=== PATIENT | female | born 1940 | race Caucasian/White ===

== ENCOUNTER 2021-12-26 10:28 | Emergency (ER) | payer MEDICARE, OTHER, SELFPAY ==
[2021-12-26 10:43] VITALS: BP 145/109; PULSE 97; RESP 22; TEMP 37.9; O2SAT 97; BMI 21.5
[2021-12-26 11:00] VITALS: BP 145/64; PULSE 80; O2SAT 97
[2021-12-26 11:30] VITALS: BP 128/60; PULSE 82; O2SAT 95
[2021-12-26 11:43] LABS: Basophils Absolute Auto 0.02 K/uL (0.00-0.30); Basophils Percent Auto 0.3 % (0.0-3.0); Hematocrit 37.6 % (33.0-51.0); Hemoglobin* 12.3 gm/dL (12.0-16.0); Lymphocytes Percent Auto 10.1 % (20-44); Mean Corpuscular HGB Conc 33 gm/dL (32-36); Mean Corpuscular Hemoglobin 29 pg (26-34); Mean Corpuscular Volume 87 fL (80-100); Monocytes Percent Auto 16.5 % (0.0-11.0); Neutrophils Percent Auto 73.1 % (42.0-72.0); Platelet Count* 185 K/uL (140-440); RDW Coefficient of Variation % 12.6 % (11.5-15.5); Red Blood Count 4.31 m/uL (4.00-5.20); White Blood Count* 6.62 K/uL (4.50-11.00)
[2021-12-26 11:45] LABS: Slide Review Reflex No
--- NOTE | 2021-12-26 11:53 | ED_ITS ---
HPI - General Adult General Chief complaint: Cough Stated complaint: Headache,cough, Time Seen by Provider: 12/26/21 11:13 Source: patient Mode of arrival: ambulatory Limitations: no limitations History of Present Illness HPI narrative: Patient is a carly 81-year-old female coming in today concerned about COVID-19. Her was diagnosed with COVID yesterday. She states that last night she developed chills, achiness and a mild cough. She does not feel short of breath. Her appetite isn't as great as it normally is but she has been eating and drinking. She denies any diarrhea, chest pain or abdominal discomfort. She is here to get tested and would like treatment like her had if possible. Patient is vaccinated and boosted. She has a history of hypothyroidism and mildly elevated blood pressure-she is on levothyroxine and lisinopril. Related Data Previous Rx's Medication Instructions Recorded levothyroxine 50 mcg tablet 50 mcg PO QDAY #90 tabs 11/05/21 nirmatrelvir 300 mg (150 mg See Rx Instructions PO .COMPLEX 12/26/21 x2)-ritonavir 100 mg tablet,dose #30 ea pack(EUA) (Paxlovid) Allergies Allergy/AdvReac Type Severity Reaction Status Date / Time codeine Allergy Verified 12/26/21 11:01 Sulfa (Sulfonamide Allergy Verified 12/26/21 11:01 Antibiotics) Review of Systems Status of ROS: Reports: 10 or more systems reviewed and unremarkable except as noted in History and below PFSH PFSH Social History Smoking Status: Never smoker Do you use any of these nicotine containing products: None Second hand tobacco smoke exposure: No How often do you have a drink containing alcohol: never How often do you have six or more drinks on one occasion: Never AUDIT-C Alcohol total score: 0 Non-prescribed substance use: denies use service: No Exam Narrative: Exam Narrative: Well-nourished elderly patient in no acute distress. Alert and oriented. Answers questions appropriately. Mood and affect are appropriate. Thoughts are goal oriented and rational. No tangential or magical thinking noted. Patient speaks in full sentences without needing to catch her breath. She is not hypoxic or tachypneic. HEENT: Normocephalic atraumatic. Pupils are equally round reactive to light. Extraocular muscles are intact. Conjunctivae are moist without any icterus noted. Moist mucous membranes. Posterior pharynx is normal. Neck is soft without any lymphadenopathy or thyromegaly. No masses are appreciated. Cardiovascular: Heart is regular rate and rhythm S1 and S2 are present without any murmurs. Lungs: Clear to auscultation bilaterally no wheezes rhonchi or rales are appreciated. Patient takes deep breaths without any discomfort. Skin: Well perfused without any obvious rashes. Const: Vital Signs, click to edit/add: Vital Signs - 24 hr 12/26/21 10:43 Temperature 100.2 F H Pulse Rate [Pulse Oximeter] 97 Respiratory Rate 22 Blood Pressure [Ri ght Upper Arm] 145/109 H Pulse Oximetry 97 Oxygen Delivery Me thod Room Air Course Course Hospital Course: CBC and chemistries were normal, COVID-19 was positive as expected. Vital Signs Vital signs: Initial Vital Signs Temperature 100.2 F H 12/26/21 10:43 Temperature Source Temporal Artery Scan 12/26/21 10:43 Pulse Rate 97 12/26/21 10:43 Pulse Rhythm 12/26/21 10:43 Respiratory Rate 22 12/26/21 10:43 Blood Pressure 145/109 H 12/26/21 10:43 Blood Pressure Mean 121 12/26/21 10:43 Pulse Oximetry 97 12/26/21 10:43 Oxygen Delivery Method 12/26/21 10:43 Vital Signs Temperature 100.2 F H 12/26/21 10:43 Pulse Rate 97 12/26/21 10:43 Respiratory Rate 22 12/26/21 10:43 Blood Pressure 145/109 H 12/26/21 10:43 Pulse Oximetry 97 12/26/21 10:43 Oxygen Delivery Method 12/26/21 10:43 Temperature 100.2 F H 12/26/21 10:43 Pulse Rate 97 12/26/21 10:43 Respiratory Rate 22 12/26/21 10:43 Blood Pressure 145/109 H 12/26/21 10:43 Pulse Oximetry 97 12/26/21 10:43 Oxygen Delivery Method 12/26/21 10:43 Medical Decision Making MDM Narrative Medical decision making narrative: 81-year-old female with COVID-19, hemodynamically stable. Did check her interactions between Paxlovid and lisinopril/levothyroxine - none were found. Lab Data Lab results reviewed: Yes I reviewed the patient's lab results Labs: Lab Results 12/26/21 12/26/21 12/26/21 Range/Units 11:14 11:35 11:35 WBC 6.62 (4.50-11.00) K/uL RBC 4.31 (4.00-5.20) m/uL Hgb 12.3 (12.0-16.0) gm/dL Hct 37.6 (33.0-51.0) % MCV 87 (80-100) fL MCH 29 (26-34) pg MCHC 33 (32-36) gm/dL RDW Coeff of Tanya 12.6 (11.5-15.5) % Plt Count 185 (140-440) K/uL Neut % (Auto) 73.1 H (42.0-72.0) % Lymph % (Auto) 10.1 L (20-44) % Starke % (Auto) 16.5 H (0.0-11.0) % Eos % (Auto) 0.0 (0.0-7.0) % Baso % (Auto) 0.3 (0.0-3.0) % Neut # (Auto) 4.80 (1.7-7.0) K/uL Lymph # (Auto) 0.70 L (0.90-2.90) K/uL Starke # (Auto) 1.10 H (0.00-0.90) K/UL Eos # (Auto) 0.00 (0.00-0.50) K/uL Baso # (Auto) 0.02 (0.00-0.30) K/uL Abs Immat Gran (auto) 0.00 (0.00-0.30) K/uL Sodium 136 (135-149) mmol/L Potassium 3.7 (3.6-5.1) mmol/L Chloride 101 (96-114) mmol/L Carbon Dioxide 27 (20-32) mmol/L BUN 20 (7-30) mg/dL Creatinine 0.5 (0.5-1.5) mg/dL Estimated Creat Clear 31.15 Estimated GFR 94 ml/min Glucose 105 (60-115) mg/dL Calcium 9.1 (8.4-10.6) mg/dL SARS-CoV-2 (PCR) POSITIVE SARS-CoV-2 A (Negative) Influenza Type A (PCR) Negative PCR FLU A (Negative) Influenza Type B (PCR) Negative PCR FLU B (Negative) Discharge Plan Discharge Clinical Impression: COVID-19 Patient Disposition: Home, Self-Care Condition: Stable Additional Instructions: Take all medications as prescribed. If you feel like you are getting worse, return to the ER. Okay to take Tylenol as needed for fever reduction. Make sure to stay well-hydrated, eat nutritious meals and rest. You should quarantine yourself for 10 days starting on the 1st day that your symptoms started, or for 5 days if you are completely asymptomatic. Prescriptions: New Paxlovid (EUA) 300 mg (150 mg x 2)-100 mg tablets,dose pack See Rx Instructions .ROUTE .COMPLEX Qty: 30 0RF Rx Instructions: take TWO 150 mg tablets of nirmatrelvir with ONE 100 mg tablet of ritonavir twice daily for 5 days No Action levothyroxine 50 mcg tablet 50 mcg PO QDAY Qty: 90 2RF Follow Up/Referrals: Mickie Walters MD [Primary Care Provider] - Stand Alone Forms: [facility] Info Instructions
[2021-12-26 11:57] LABS: Chloride* 101 mmol/L (96-114)
[2021-12-26 11:58] LABS: Potassium* 3.7 mmol/L (3.6-5.1); Sodium* 136 mmol/L (135-149)
[2021-12-26 12:00] VITALS: BP 151/65; PULSE 79; O2SAT 97
[2021-12-26 12:00] LABS: Creatinine* 0.5 mg/dL (0.5-1.5); Est. Creatinine Clearance* 31.15; Estimated Glomerular Filt Rate 94 ml/min
[2021-12-26 12:01] LABS: Blood Urea Nitrogen* 20 mg/dL (7-30); Calcium* 9.1 mg/dL (8.4-10.6); Carbon Dioxide* 27 mmol/L (20-32); Glucose* 105 mg/dL (60-115)
[2021-12-26 12:04] LABS: PCR FLU A Negative PCR FLU A (Negative); PCR FLU B Negative PCR FLU B (Negative); SARS PCR* POSITIVE SARS-CoV-2 (Negative)
[2021-12-26 12:30] VITALS: BP 140/64; PULSE 83; RESP 22; O2SAT 97
== END 2021-12-26 12:45 | disposition home or self-care (01) ==
PROVIDERS: Emergency Provider Family Medicine; PCP Internal Medicine
DX: U07.1 COVID-19 (principal); R05.9 Cough, unspecified
CPT/HCPCS: 36415; 80048; 85025; 87631; 99283; 99284

== ENCOUNTER 2022-10-29 13:20 | Outpatient (CLI) | payer MEDICARE, OTHER, SELFPAY ==
--- NOTE | 2022-10-29 14:00 | CRLHL7_ITS ---
For Patients: As a result of the Century Cures Act, medical imaging exams and procedure reports are released immediately into your electronic medical record. You may view this report before your referring provider. If you have questions, please contact your health care provider. BILATERAL SCREENING MAMMOGRAM WITH COMPUTER-AIDED DETECTION AND TOMOSYNTHESIS TECHNIQUE: CC and MLO views were obtained. These mammographic images have been obtained using full-field digital technique. These mammographic images were interpreted with the benefit of computer-aided detection. Breast Tomosynthesis was used in this interpretation. COMPARISON FILM: 09/04/21, 07/04/20. FINDINGS: There are scattered areas of fibroglandular density IMPRESSION: There is no radiographic evidence for malignancy. ASSESSMENT: BI-RADS Category 1: Negative RECOMMENDATION: Routine screening mammogram in 1 year. A lay language report of this examination will be provided to the patient. Jaylen George M.D. Diagnostic Radiologist [email or web address] Transcribed: 3:02 p.jayleen cottrell/Dictated by: Jaylen George MD @ 10/30/2022 11:51:00 AM (Electronically Signed)
== END 2022-10-29 13:21 | disposition home or self-care (01) ==
LOC: MAMMO 13:22
PROVIDERS: PCP Internal Medicine; Visit Provider Internal Medicine
DX: Z12.31 Encounter for screening mammogram for malignant neoplasm of breast (principal)
CPT/HCPCS: 77063; 77067

== ENCOUNTER 2023-12-11 13:28 | Outpatient (CLI) | payer MEDICARE, OTHER, SELFPAY ==
--- OUTSIDE RECORDS SUMMARY | 2023-12-16 08:51 | XMS_ITS | Clinical Summary ---
Author Organization [facility] Address [place], [place] [address] Care Team Providers Care Mincemeat Maker Name Role Phone Daniel Gorman Primary Care Provider Unavaila ble Allergies Active Allergy Reactions Criticality Noted Date Comments Codesurinder Johnson 01/15/2014 Sulfa (Sulfonamide Antibiotics) Nausea And Vomiting 01/15/2014 Medications Medication Sig Dispensed Refills Start Date End Date Status nitrofurantoin macrocrystals/monohy drate (MACROBID) 100 mg capsuleIndications:R ecurrent UTI (urinary tract infection) Take 1 capsule by mouth 2 times daily. 14 capsule 0 12/01/2014 Active Active Problems Problem Noted Date Diagnosed Date Female bladder prolapse 01/15/2014 Immunizations Name Administration Dates Next Due Influenza A (H1N1), Inactivated (Age >=3 Years) 04/03/2009 Influenza, IIV3 (Age >=3 years) 01/24/2009 Social History Tobacco Use Types Packs/Day Years Used Date Smoking Tobacco: Never Tobacco Cessation:Counseling Given: Yes Alcohol Use Standard Drinks/Week Comments Not Asked 0 (1 standard drink = 0.6 oz pur e alcohol) Sex and Gender Information Value Date Recorded Sex Assigned at Not on file Gender Identity Not on file Sexual Orientation Not on file Obstetrics History Last Filed Vital Signs Vital Sign Reading Time Taken Comments Blood Pressure 138/77 01/15/2014 11:08 AM CDT Pulse 63 01/15/2014 11:08 AM CDT Temperature 36.6 ??C (97.8 ??F) 01/15/2014 11:08 AM C DT Respiratory Rate - - Oxygen Saturation 100% 01/15/2014 11:08 AM CDT Inhaled Oxygen Concentration - - Weight 67.3 kg (148 lb 6.4 oz) 01/15/2014 11:08 AM CDT Height - - Body Mass Index - - Plan of Treatment Health Maintenance Due Date Last Done Comments Tdap 09/14/1950 Depression screening for age 12+ 1951 BMI (ht and wt on same day) for age 18+ 09/14/1957 Tetanus booster 1959 Zoster (shingles) series for age 50+ (1 of 2) 09/14/1989 RSV vaccine for adults or pr egnancy (1 - 1-dose 60+ series) 1999 DEXA/DXA scan for age 65+ 09/14/2004 Pneumococcal series for age 65+ (1 of 1 - PCV) 09/14/2004 COVID-19 vaccine series (1 - 2022-24 season) 2023 Influenza for age 65+ 12/07/2023 04/03/2009, 009 Care Teams Mincemeat Maker Relationship Specialty Start Date End Date Daniel Gorman PCP - General 04/03/09
--- OUTSIDE RECORDS SUMMARY | 2023-12-16 08:51 | XMS_ITS | Clinical Summary ---
Author Organization [facility] Address [address] [place] [address] Care Team Providers Care Sports Management Professor Name Role Phone Unavailable Primary Care Provider Unavailabl e Source Comments Patient records contain information from all sites at [facility]. For routine questions regarding patient records, call [phone] during business hours, M-F 8:00 AM - 5:00 PM Central Time. Record requests for emergency care only can be directed to [phone] at any time.[facility] Allergies Active Allergy Reactions Criticality Noted Date Comments Azathioprine GI intolerance Medium 11/11/2007 Vomiting Codeine GI intolerance Medium 09/10/2004 Nausea and Vomiting Estradiol Rash Medium 01/06/2017 Hydrocodone GI intolerance Medium 02/23/2014 Nausea and Vomiting Mycophenolic Acid Other (see comments) Medium 11/11/19 08 Bladder infection Propoxyphene GI intolerance Medium 09/10/2004 Nausea and Vomiting Pyridostigmine Everson Hives (Reselect Reaction) Low 07/04/2020 Sulfa (Sulfonamide Antibiotics) GI intolerance Medium 12/01/2008 Nausea Only Medications Medication Sig Dispensed Refills Start Date End Date Status lisinopriL (PRINIVIL,ZESTRIL) 5 mg tablet TAKE ONE TABLET BY MOUTH ONE TIME DAILY 90 tablet 3 05/28/2021 Active chlorhexidine (Peridex) 0.12 % mouthwash At morning and at bedtime, dip a toothbrush into mouthrinse and brush around the dental implants and gums gently. 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 Denture Reline from Last 3 Months Immunizations Name Administration Dates Next Due H1N1 All Forms 04/03/2009 H1N1 Inj 04/03/2009 HZV (ZOSTAVAX) 11/24/2008 Influenza Split 02/05/2007 Influenza TIV (IM) 01/24/2009 Influenza high dose QV(65 ye ars or older) (PF) 01/03/2020 Influenza, Seasonal, Injectable 02/05/2007,02/15,03/24/2001 Influenza, Unspecified 02/11/2006,01/25/2005 PCV13 12/13/2014 PPSV23 03/09/2018,01/25/2005 RZV (SHINGRIX) 09/14/2019,03/15/2019 SARS-COV-2 (COVID-19) - PFIZ ER (Discontinued)(12 years or older) 06/13/2020,05/23/2020 Td (Adult), adsorbed 05/08/2004,05/08/2003 Td, (Adult) Unspecified 05/08/2004 Tdap 01/23/2012 influenza trivalent high dos e (HD)(PF) 01/26/2019,01/22/2018,01/27/2017,2015,01/23/2015,01/19/2014,01/18/2013,1 ,01/23/2011,01/31/2010 influenza trivalent vaccine (6 months and older)(PF) 12/26/2008,01/28/2008 Family History Medical History Relation Name Comments Coronary artery disease Father TANA THOMPSON Prostate cancer Father TANA THOMPSON Cataracts Maternal Grandmother Leukemia Mother's Brother 1 PALMA DE LA VEGA Stroke Mother's Brother 2 LYNNETTE SALT Lung cancer Sister 1 FAN DEL ROSARIO Macular degeneration Sister 1 FAN DEL ROSARIO Osteoporosis Sister 1 FAN DEL ROSARIO Coronary artery disease Sister 2 SUDHAKAR KHANH Diabetes Sister 2 SUDHAKAR GUPTASLYN Obesity Sister 2 SUDHAKAR HUNGN Macular degeneration Sister 3 [place] Osteoporosis Sister 3 [place] [facility] Thyroid disease Sister 3 [place] [facility] Amblyopia Neg Hx Blindness Neg Hx Cancer Neg Hx Glaucoma Neg Hx Hypertension Neg Hx Retinal degeneration Neg Hx Retinal detachment Neg Hx Strabismus Neg Hx Vision loss Neg Hx Relation Name Status Comments Father TANA THOMPSON Maternal Grandmother Mother's Brother 1 PALMA DE LA VEGA Mother's Brother 2 LYNNETTE CEFERINO Sister 1 FAN DEL ROSARIO Sister 2 SUDHAKAR GUPTASLYN Sister 3 [facility] [facility] [facility] Social History Tobacco Use Types Packs/Day Years Used Date Smoking Tobacco: Never Smokeless Tobacco: Never Alcohol Use Standard Drinks/Week Comments No 0 (1 standard drink = 0.6 oz pur e alcohol) Social Connection and Isolat ion Panel [NHANES] Answer Date Recorded In a typical week, how many times do you talk on the phone with family, friends, or neighbors? More than three times a week 12/13/2019 How often do you get togethe r with friends or relatives? Once a week 12/13/2019 Attends [employer] Not on file 12/12 Active Member of Clubs or Organizations Not on f ile 12/13/2019 Attends Club or Organization Meetings Not on beverly e 12/13/2019 Marital Status Not on file 12/13/2019 AUDIT-C Answer Date Recorded Frequency of Alcohol Consumption Never 03/12/2019 Average Number of Drinks Not on file 019 Frequency of Binge Drinking Never 09/2018 Overall Financial Resource Strain (CARDIA) Answe r Date Recorded Difficulty of Paying Living Expenses Not hard at all 03/12/2019 PHQ-2 Answer Date Recorded PHQ-2 Score 0 07/04/2020 [facility] [place] [facility] Occupat ional Health - Occupational Stress Questionnaire Answer Date Recorded Do you feel stress - tense, restless, nervous, or anxious, or unable to sleep at night because your mind is troubled all the time - these days? Only a little 12/13/2019 Exercise Vital Sign Answer Date Recorde d On average, how many days pe r week do you engage in moderate to strenuous exercise (like a brisk walk)? 4 days 12/13/2019 On average, how many minutes do you engage in exercise at this level? 10 min 12/13/2019 Hunger Vital Sign Answer Date Recorded Worried About Running Out of Food in the Last Ye ar Never true 03/12/2019 Ran Out of Food in the Last Year Never true 03/12/2019 PRAPARE - Transportation Answer Date Re corded Lack of Transportation (Medical) No 03/12/2019 Lack of Transportation (Non-Medical) No 03/12/2019 Nutrition Answer Date Recorded Nutrition: EVOO Fat Source Unknown 12/20 Nutrition: Servings of Fruits/Vegetables per Day Not on file 12/20/2022 Dental Answer Date Recorded Dental: Regular Dentist Unknown 12/21/19 23 Education Answer Date Recorded What is the highest level of school you have completed or the highest degree you have received? 12th grade 03/12/2019 Sex and Gender Information Value Date Recorded Sex Assigned at Female 08/21/2017 3:02 PM CDT Gender Identity Female 08/21/2017 3:02 PM CDT Sexual Orientation Straight 08/21/2017 3: 02 PM CDT Last Filed Vital Signs Vital Sign Reading Time Taken Comments Blood Pressure 151/71 07/04/2020 1:35 PM CDT AVG Pulse 62 07/04/2020 1:35 PM CDT Temperature 36.7 ??C (98.1 ??F) 05/31/2019 2:40 PM CS T Respiratory Rate 22 05/31/2019 3:15 PM MEDICINE ASSISTANT Oxygen Saturation 97% 05/31/2019 3:15 PM MEDICINE ASSISTANT Inhaled Oxygen Concentration - - Weight 59.7 kg (131 lb 9.8 oz) 07/04/2020 1:35 P M CDT Height 153.5 cm (5' 0.43) 07/04/2020 1:35 PM CD T Body Mass Index 25.34 07/04/2020 1:35 PM CDT Plan of Treatment Health Maintenance Due Date Last Done Comments Office Visit for Blood Press ure Check / Re-check 07/04/2021 07/04/2020 Thyroid Stimulating Hormone (TSH) test for thyroid function 07/04/2021 07/04/2020, 03/15/2019, 02/16/2018, Additional history exists Creatinine Level (Kidney Fun ction Test) 08/04/2021 08/04/2020, 07/04/2020, 05/13/2019, Additional history exists Potassium Level 08/04/2021 08/04/2020, 06/07, 03/19/2019, Additional history exists Sodium Level 08/04/2021 08/04/2020, 06/07, 03/19/2019, Additional history exists Depression Screening (Annual PHQ-2) 04/07/2023 Fall Risk Screen (Annual) 04/07/2023 COVID-19 Vaccine (2022-2 4 season) 2023 08/07/2021, 01/11/2021, 06/13/2020, Additional history exists Influenza Vaccine (#1) 2024 , 02/03/2022, 01/16/2021, Additional history exists DTaP,Tdap,and Td Vaccines (3 - Td or Tdap) 07/10/2031 07/09/2021, 01/23/2012, 05/08/2004, Additional history exists CT Colonography Discontinued 09/06/1999 Colonoscopy Discontinued 12/23/2017, 12/06, 11/30/2007 Colorectal Cancer Surveillance Discontinued Pneumococcal vaccine (65+ years) Completed 03/09/2018, 12/13/2014, 01/25/2005 Zoster Vaccines Completed 09/14/2019, 12/2018, 11/24/2008 Cologuard Discontinued Medical Devices Implanted Type Area Director Equipment Device Identifier Shelf Expiration Date Model / Serial / Lot Hardware E.G. Pins/Screws/Ro ds Hardware e.g. pins/screws/ rods Toes Description:Two pins in Left great toe [employer] Rp Mkiii Tiunite 4.00mm Rp 4.00mm X 13.00mm Implanted:Qty: 1 on 08/05/2012 by Deny Thurston D.D.S. Hardware e.g. pins/screws/ rods Mouth [employer] [id number] / / [id number] Description:Site #22 Branalfierk Rp Mkiii Tiunite 4.00mm Rp 4.00mm X 13.00mm Implanted:Qty: 1 on 08/05/2012 by Deny Thurston D.D.S. Hardware e.g. pins/screws/ rods Mouth [employer] [id number] / / [id number] Description:Site #27 Conversions - Default Historical Implant Device Implanted:11/2014 (Quantity not on file) Mis Other Description:Device Status Te xt - MiscOther. 2 dental implants lower jaw. Lens Nate 22.0d X 6.0mm - Berg [id number] Implanted:Qty: 1 on 11/16/2013 Ocular Lens Right: Other/Legacy - See Implant Description [employer] Description:Device Manufactu rer - [employer]. Body Location - Right. Device Status Text - [id number]. Lens Nate 22.0d X 6.0mm - Berg [id number] Implanted:Qty: 1 on 01/18/2014 Ocular Lens Left: Other/Legacy - See Implant Description [employer] Description:Device Manufactu rer - [employer]. Body Location - Left. Device Status Text - [id number]. Align Sling Retropubic - Berg [id number] Implanted:Qty: 1 on 02/15/2014 Urogenital Implant Other/Legacy - See Implant Description [employer] Description:Device Manufactu rer - [employer]. Body Location - Other. Not Applicable. Device Status Text - [id number]. Procedures Procedure Name Priority Date/Time Associated Diagnosis Comments SODIUM, S/P Routine 08/04/2020 9:13 AM CDT Hypertension Essential Primary POTASSIUM, S/P Routine 08/04/2020 9:13 AM CDT Hypertension Essential Primary CREATININE WITH EGFR, S/P Routine 08/04/2020 9:13 AM CDT Hypertension Essential Primary THYROID-STIMULATING HORMONE-SENSITIVE (S-TSH) Routine 07/04/2020 9:14 AM CDT Thyroiditis [facility] Examination Adult COLONOSCOPY Routine 12/23/2017 10:43 AM CDT Nausea *CT COLONOGRAPHY Routine 09/06/1999 8:26 AM CDT from Last 3 Months or Most Recently Relevant to Health Maintenance Results * Sodium (08/04/2020 9:13 AM CDT) Sodium, S 142 135 - 145 mmol/L 08/04/2020 10:15 AM CDT DTL Blood (Blood, Venous) 08/04/2020 9:13 AM CDT 08/04/2020 9:38 AM CDT Velma FITCH, PLisaA.-C. LAB B LOOD ADD-ON Performing Organization Address City/[facility]/ZIP Co de Phone Number [facility] [address] [place] [address] * Potassium (08/04/2020 9:13 AM CDT) Potassium, S 4.1 3.6 - 5.2 mmol/L 08/04/2020 10:15 AM CDT DTL Blood (Blood, Venous) 08/04/2020 9:13 AM CDT 08/04/2020 9:38 AM CDT Velma FITCH, P.A.-C. LAB B LOOD ADD-ON [facility] [address] [place] [address], [facility] [address] [place] [address] * (ABNORMAL) Creatinine with Estimated GFR (08/04/2020 9:13 AM CDT) Creatinine 0.57(L) 0.59 - 1.04 mg/dL 08/04/2020 10:15 AM CDT DTL eGFR-Non Black/ 88 >=60 mL/min/BSA 08/04/2020 10:15 AM CDT DTL Comment: ----ADDITIONAL INFORMATION---- Estimated GFR calculated using the 2009 CKD_EPI creatinine equation. eGFR-Black/Afri can Qatari >90 >=60 mL/min/BSA 08/04/2020 10:15 AM CDT DTL Comment: ----ADDITIONAL INFORMATION---- Estimated GFR calculated using the 2009 CKD_EPI creatinine equation. Blood (Blood, Venous) 08/04/2020 9:13 AM CDT 08/04/2020 9:38 AM CDT Yoly Bowens.MelissaCLisa LAB B LOOD ADD-ON [facility] [address] [place] [address] * S-TSH (Thyroid-Stimulating Hormone - Sensitive) (07/04/2020 9:14 AM CDT) TSH, Sensitive 2.2 0.3 - 4.2 mIU/L 07/04/2020 10:24 AM CDT DT Blood (Blood, Venous) 07/04/2020 9:14 AM CDT 07/04/2020 9:37 AM CDT Velma FITCH P.A.-C. LAB B LOOD ADD-ON [facility] [address] [facility] [address] [place] [address] * CT Colonography (09/06/1999 8:26 AM CDT) Anatomical Region Laterality Modality Computed Tomogra phy 09/06/1999 8:26 AM CDT Narrative 09/19/1999 9:39 AM CDT 06-Sep-1999 08:26:00 ??Exam: *CT Colonography Indications: IRB [id number] ORIGINAL REPORT - 19-Sep-1999 09:39:00 ([id number]) ??CT colonography done for research purposes. Incidentally noted is cholelithiasis. Electronically signed by: ?? Alexus Stevens MD. ??[phone] 19-Sep-1999 09:39 Procedure Note Holger Stevens M.D. - 07/14/2017 06-Sep-1999 08:26:00 Exam: *CT Colonography Indications: IRB [id number] ORIGINAL REPORT - 19-Sep-1999 09:39:00 ([id number]) CT colonography done for research purposes. Incidentally notedis cholelithiasis. Electronically signed by: Alexus Stevens MD. [phone] 19-Sep-1999 09:39 Scott Soliman M.D. IMG CT PROCEDURES from Last 3 Months or Most Recently Relevant to Health Maintenance Advance Directives For more information, please contact: [phone] Documents on File Type Date Recorded Patient Ict Customer Support Officer Expl anation Advance Directives 03/18/2016 12:[address] document. See document viewer. Advance Directives 03/27/2006 12:[address] document. See document viewer. Advance Directives 09/25/2004 12:00 AM Xiomy dalton document. See document viewer.
--- OUTSIDE RECORDS SUMMARY | 2023-12-16 08:52 | XMS_ITS | Encounter Summary ---
Author Organization [facility] Address [address] [place] [address] Care Team Providers Care Celery Cutter Name Role Phone Unavailable Primary Care Provider Unavailabl e Reason for Visit * Reason Onset Date Comments Follow-up Orders 09/04/2023 Encounter Details Date Type Department Care Team (Latest Contact Info) Description 09/04/2023 Clinical Communication Department of Dental Specialties in [place], [place] [address] [place] [address] Kayla Howard D.M.D. [address] [place] [phone] Follow-up Orders Social History Tobacco Use Types Packs/Day Years [...] or relatives? Once a week 12/13/2019 Attends [employer] Services Not on file 12/12 Active Member [...] Answer Date Recorded PHQ-2 Score 0 07/04/2020 [facility] of Occupat ional Health - Occupational Stress [...] Orientation Straight 08/21/2017 3: 02 PM CDT documented as of this encounter Plan of Treatment Not on file documented as of this encounter Visit Diagnoses Not on filedocumented in this encounter
--- OUTSIDE RECORDS SUMMARY | 2023-12-16 08:52 | XMS_ITS | Encounter Summary ---
Author Organization [facility] Address [address] [place] [address] Care Team Providers Care Paint Grinder Stone Mill Name Role Phone Unavailable Primary Care Provider Unavailabl e Encounter Details Date Type Department Care Team (Late st Contact Info) Description 01/23/2015 Historical Ophthalmology RST OPH Tnai Zamora M.D. [address] [place] [phone] Social History Tobacco Use Types Packs/Day Years Used Date Smoking Tobacco: Never Assessed Sex and Gender Information Value Date Recorded Sex Assigned at Female 08/21/2017 3:02 PM CDT Gender Identity Female 08/21/2017 3:02 PM CDT Sexual Orientation Straight 08/21/2017 3: 02 PM CDT documented as of this encounter Progress Notes * Tani Zamora M.D. - 01/23/2015 1:41 PM CDT Eye General CHIEF COMPLAINT Double vision; she seems to see better in her left eye when lifting her glasses (near only Rx) HISTORY OF PRESENT ILLNESS Binocular horizontal diplopia; both eyes; x several months; intermittently; symptoms are moderate; worse when tired. Blurred vision; left eye; x several months; constantly; symptoms are mild. She hasnoticed if she lifts her glasses up in her left eye, she can see better. Denies flashes and floaters. Patient denies ocular pain. IMPRESSION / REPORT / PLAN #1 pseudophakia stable #2 refractive error rx given with prism DIAGNOSIS #1 pseudophakia #2 refractive error CDM Reports - EYEGEN Id: [id number] Status: Fnl documented in this encounter Plan of Treatment Not on file documented as of this encounter Visit Diagnoses Not on filedocumented in this encounter
--- OUTSIDE RECORDS SUMMARY | 2023-12-16 08:52 | XMS_ITS | Encounter Summary ---
Author Organization [facility] Address [address] [place] [address] Care Team Providers Care Sample Box Maker Name Role Phone Unavailable Primary Care Provider Unavailabl e Encounter Details Date Type Department Care Team (Late st Contact Info) Description 03/02/2014 Historical Ophthalmology RST OPH Tani Zamora M.D. [address] [place] [phone] Social History Tobacco Use Types Packs/Day Years Used Date Smoking Tobacco: Never Assessed Sex and Gender Information Value Date Recorded Sex Assigned at Female 08/21/2017 3:02 PM CDT Gender Identity Female 08/21/2017 3:02 PM CDT Sexual Orientation Straight 08/21/2017 3: 02 PM CDT documented as of this encounter Progress Notes * Tani Zamora M.D. - 03/02/2014 8:59 AM CST Eye Postoperative MULTI-VISIT DOCUMENT This document contains multiple patient visits and is available for review in Document Viewer. CDM Reports - EYEPO Id: [id number] Status: Fnl documented in this encounter Plan of Treatment Not on file documented as of this encounter Visit Diagnoses Not on filedocumented in this encounter
--- OUTSIDE RECORDS SUMMARY | 2023-12-16 08:52 | XMS_ITS | Encounter Summary ---
Author Organization [facility] Address [address] [place] [address] Care Team Providers Care Correctional Facility Psychiatrist Name Role Phone Unavailable Primary Care Provider Unavailabl e Encounter Details Date Type Department Care Team (Late st Contact Info) Description 11/15/2013 Historical Ophthalmology RST OPH Yun Joyner [address] [place] [address] Social History Tobacco Use Types Packs/Day Years Used Date Smoking Tobacco: Never Assessed Sex and Gender Information Value Date Recorded Sex Assigned at Female 08/21/2017 3:02 PM CDT Gender Identity Female 08/21/2017 3:02 PM CDT Sexual Orientation Straight 08/21/2017 3: 02 PM CDT documented as of this encounter Progress Notes * Yun Joyner - 11/15/2013 10:18 AM CDT Eye Subsequent Visit HISTORY OF PRESENT ILLNESS Cataract surgery right eye by DR. Zamora November 16. [phone]. CDM Reports - EYESV Id: [id number] Status: Fnl documented in this encounter Plan of Treatment Not on file documented as of this encounter Visit Diagnoses Not on filedocumented in this encounter
--- OUTSIDE RECORDS SUMMARY | 2023-12-16 08:52 | XMS_ITS | Referral Summary ---
Author Organization [facility] Address [address] [place] [address] Care Team Providers Care Kettle Operator Head Name Role Phone Unavailable Primary Care Provider Unavailabl e Source Comments Patient records contain information from all sites at [facility]. For routine questions regarding patient records, call [phone] during business hours, M-F 8:00 AM - 5:00 PM Central Time. Record requests for emergency care only can be directed to [phone] at any time.[facility] Encounters Date Type Department Care Team Description 09/26/2023 Clinical Communication Department of Dental Specialties in [place], [place] [address] [place] [address] Kayla Howard D.M.D. Denture Reline from Last 3 Months Allergies Active Allergy Reactions Criticality Noted Date Comments Azathioprine GI intolerance Medium 11/11/2007 Vomiting Codeine GI intolerance Medium 09/10/2004 Nausea and Vomiting Estradiol Rash Medium 01/06/2017 Hydrocodone GI intolerance Medium 02/23/2014 Nausea and Vomiting Mycophenolic Acid Other (see comments) Medium 11/11/19 08 Bladder infection Propoxyphene GI intolerance Medium 09/10/2004 Nausea and Vomiting Pyridostigmine [place] Hives (Reselect Reaction) Low 07/04/2020 Sulfa (Sulfonamide [...] 10/23/2017 Nausea 08/25/2017 07/04/2020 Hypertension Borderline 06/19/200606/07 Immunizations Name Administration Dates Next Due H1N1 [...] trivalent vaccine (6 months and older)(PF) 12/26/2008,01/28/2008 Social History Tobacco Use Types Packs/Day Years [...] or relatives? Once a week 12/13/2019 Attends [employer] Services Not on file 12/12 Active Member [...] Answer Date Recorded PHQ-2 Score 0 07/04/2020 [facility] of Occupat ional Health - Occupational Stress [...] Date Recorded Dental: Regular Dentist Unknown 12/21/19 Education Answer Date Recorded What is the [...] T Respiratory Rate 22 05/31/2019 3:15 PM FRONT END SOFTWARE DEVELOPER Oxygen Saturation 97% 05/31/2019 3:15 PM FRONT END SOFTWARE DEVELOPER Inhaled Oxygen Concentration - - Weight 59.7 kg (131 lb 9.8 oz) 07/04/2020 1:35 P M CDT Height 153.5 cm (5' 0.43) 07/04/2020 1:35 PM CD T Body Mass Index 25.34 07/04/2020 1:35 PM CDT Plan of Treatment Not on file Medical Devices Implanted Type Area Combination Welder Apprentice Device Identifier Shelf Expiration Date Model / Serial / Lot Hardware E.G. Pins/Screws/Ro ds Hardware e.g. pins/screws/ rods Toes Description:Two pins in Left great toe Cesaremark Rp Mkiii Tiunite 4.00mm Rp 4.00mm X 13.00mm Implanted:Qty: 1 on 08/05/2012 by Deny Thurston D.D.SLisa Hardware e.g. pins/screws/ rods Mouth [employer] [id number] / / [id number] Description:Site #22 Branemark Rp Mkiii Tiunite 4.00mm Rp 4.00mm X 13.00mm Implanted:Qty: 1 on 08/05/2012 by Deny Thurston D.D.S. Hardware e.g. pins/screws/ rods Mouth [employer] [id number] / / [id number] Description:Site #27 Conversions - Default Historical Implant Device Implanted:11/2014 (Quantity not on file) [facility] Other Description:Device Status Te xt - MiscOther. 2 dental implants lower jaw. Lens Nate 22.0d X 6.0mm - Berg [id number] Implanted:Qty: 1 on 11/16/2013 Ocular Lens Right: Other/Legacy - See Implant Description [employer] Description:Device Manufactu rer - [employer]. Body Location - Right. Device Status Text - [id number]. Lens Nate 22.0d X 6.0mm - Berg [id number] Implanted:Qty: 1 on 01/18/2014 Ocular Lens Left: Other/Legacy - See Implant Description [employer] Description:Device Manufactu rer - [employer]. Body Location - Left. Device Status Text - [id number]. Align Sling Retropubic - Berg [id number] Implanted:Qty: 1 on 02/15/2014 Urogenital Implant Other/Legacy - See Implant Description [employer] Description:Device Manufactu rer - [employer] Patient Care [facility]. Body Location - Other. Not Applicable. Device Status Text - [id number]. Procedures Procedure Name Priority Date/Time Associated Diagnosis [...] Velma FITCH, P.A.-C. LAB B LOOD ADD-ON [facility] [address] [place] [address] * Potassium (08/04/2020 9:13 AM CDT) Potassium, S 4.1 3.6 - 5.2 mmol/L 08/04/2020 10:15 AM CDT DTL Blood (Blood, Venous) 08/04/2020 9:13 AM CDT 08/04/2020 9:38 AM CDT Velma FITCH, P.A.-C. LAB B LOOD ADD-ON [facility] 200 [place] [address], [place] [address] * (ABNORMAL) Creatinine with Estimated GFR (08/04/2020 9:13 AM CDT) Creatinine 0.57(L) 0.59 - 1.04 mg/dL 08/04/2020 10:15 AM CDT DTL eGFR-Non Black/ 88 >=60 mL/min/BSA 08/04/2020 10:15 AM CDT DTL Comment: ----ADDITIONAL INFORMATION---- Estimated GFR calculated using the 2009 CKD_EPI creatinine equation. eGFR-Black/Afri can Belizean >90 >=60 mL/min/BSA 08/04/2020 10:15 AM CDT DTL Comment: ----ADDITIONAL INFORMATION---- Estimated GFR calculated using the 2009 CKD_EPI creatinine equation. Blood (Blood, Venous) 08/04/2020 9:13 AM CDT 08/04/2020 9:38 AM CDT Velma FITCH P.A.-C. LAB B LOOD ADD-ON Performing Organization Address City/[facility] Co de Phone Number [facility] [address] [place] [address] * S-TSH (Thyroid-Stimulating Hormone - Sensitive) (07/04/2020 9:14 AM CDT) Pathologist [facility] TSH, Sensitive 2.2 0.3 - 4.2 mIU/L 07/04/2020 10:24 AM CDT DTL Blood (Blood, Venous) 07/04/2020 9:14 AM CDT 07/04/2020 9:37 AM CDT Velma FITCH P.A.-C. LAB B LOOD ADD-ON Performing Organization Address [facility] Co de Phone Number [facility] [address] [place] [address] * CT Colonography (09/06/1999 8:26 AM CDT) [...] Advance Directives For more information, please contact: [phone] Documents on File Type Date Recorded Patient Dump Grounds Checker Expl anation Advance Directives 03/18/2016 12:00 AM [place] g[place] document. See document viewer. Advance Directives 03/27/2006 12:00 AM [place] g[place] document. See document viewer. Advance Directives 09/25/2004 12:00 AM Xiomy acjulio document. See document viewer.
--- OUTSIDE RECORDS SUMMARY | 2023-12-16 08:52 | XMS_ITS | Encounter Summary ---
Author Organization [facility] Address [address] [place] [address] Care Team Providers Care Director Of Teenage Activities Name Role Phone Unavailable Primary Care Provider Unavailabl e Encounter Details Date Type Department Care Team (Late st Contact Info) Description 10/15/2013 Historical Ophthalmology RST OPH Sky Monsivais O.D. [address] [place] [phone] Social History Tobacco Use Types Packs/Day Years Used Date Smoking Tobacco: Never Assessed Sex and Gender Information Value Date Recorded Sex Assigned at Female 08/21/2017 3:02 PM CDT Gender Identity Female 08/21/2017 3:02 PM CDT Sexual Orientation Straight 08/21/2017 3: 02 PM CDT documented as of this encounter Progress Notes * Sky Monsivais O.D. - 10/15/2013 12:33 PM CDT Eye General CHIEF COMPLAINT Routine Examination HISTORY OF PRESENT ILLNESS Patient reports a slight decrease in vision; both eyes; constant; x since last visit. Patient denies flashes, floaters, diplopia, Patient denies ocular pain. IMPRESSION / REPORT / PLAN #1 Cataract, both eyes (right > left), visually significant. Plan: obtain consult with cataract surgeon. DIAGNOSIS #1 Cataract, both eyes (right > left), visually significant. CD Reports - EYEGEN Id: [id number] Status: Fnl documented in this encounter Plan of Treatment Not on file documented as of this encounter Visit Diagnoses Not on filedocumented in this encounter
--- OUTSIDE RECORDS SUMMARY | 2023-12-16 08:52 | XMS_ITS | Encounter Summary ---
Author Organization [facility] Address [address] [place] [address] Care Team Providers Care Preforms Laminator Name Role Phone Unavailable Primary Care Provider Unavailabl e Reason for Visit * Reason Onset Date Comments Denture Reline 09/26/2023 Encounter Details Date Type Department Care Team (Latest Contact Info) Description 09/26/2023 Clinical Communication Department of Dental Specialties in [place], [place] [address] [place] [address] Kayla Howard D.M.D. [address] [place] [phone] Denture Reline Social History Tobacco Use Types Packs/Day Years [...] or relatives? Once a week 12/13/2019 Attends [employer] Services Not on file 12/12 Active Member [...] Answer Date Recorded PHQ-2 Score 0 07/04/2020 [facility] of Occupat ional Health - Occupational Stress [...]
--- OUTSIDE RECORDS SUMMARY | 2023-12-16 08:52 | XMS_ITS | Encounter Summary ---
Author Organization [facility] Address [address] [place] [address] Care Team Providers Care Efficiency Miner Name Role Phone Unavailable Primary Care Provider Unavailabl e Encounter Details Date Type Department Care Team (Late st Contact Info) Description 12/23/2013 Historical Ophthalmology RST OPH Tani Zamora M.D. [address] [place] [phone] Social History Tobacco Use Types Packs/Day Years Used Date Smoking Tobacco: Never Assessed Sex and Gender Information Value Date Recorded Sex Assigned at Female 08/21/2017 3:02 PM CDT Gender Identity Female 08/21/2017 3:02 PM CDT Sexual Orientation Straight 08/21/2017 3: 02 PM CDT documented as of this encounter Progress Notes * Tani Zamora M.D. - 12/23/2013 7:23 AM CDT Eye Postoperative MULTI-VISIT DOCUMENT This document contains multiple patient visits and is available for review in Document Viewer. CDM Reports - EYEPO Id: [id number] Status: Fnl documented in this encounter Plan of Treatment Not on file documented as of this encounter Visit Diagnoses Not on filedocumented in this encounter
--- OUTSIDE RECORDS SUMMARY | 2023-12-16 08:52 | XMS_ITS | Encounter Summary ---
Author Organization [facility] Address [address] [place] [address] Care Team Providers Care Law Office Assistant Name Role Phone Unavailable Primary Care Provider Unavailabl e Encounter Details Date Type Department Care Team (Late st Contact Info) Description 11/23/2008 Historical Ophthalmology RST OPH Sky Monsivais O.D. [address] [place] [phone] Social History Tobacco Use Types Packs/Day Years Used Date Smoking Tobacco: Never Assessed Sex and Gender Information Value Date Recorded Sex Assigned at Female 08/21/2017 3:02 PM CDT Gender Identity Female 08/21/2017 3:02 PM CDT Sexual Orientation Straight 08/21/2017 3: 02 PM CDT documented as of this encounter Progress Notes * Sky Monsivais O.D. - 11/23/2008 3:02 PM CDT Eye General CHIEF COMPLAINT vasculitis / eye exam HISTORY OF PRESENT ILLNESS 68 year old presents for an eye exam. she states it has been two years since her last eye exam. Sheis unaware of any vision changes. Patient denies ocular pain. No floaters or flashes of light. No double vision. IMPRESSION / REPORT / PLAN #1 Refractive error (hyperopia, presbyopia). Plan: spectacle prescription (Refraction 1) given. #2 Vasculitis No evidence of ocular sequelae. DIAGNOSIS #1 Refractive error (hyperopia, presbyopia). #2 Vasculitis CDM Reports - EYEGEN Id: [id number] Status: Fnl documented in this encounter Plan of Treatment Not on file documented as of this encounter Visit Diagnoses Not on filedocumented in this encounter
--- OUTSIDE RECORDS SUMMARY | 2023-12-16 08:52 | XMS_ITS | Encounter Summary ---
Author Organization [facility] Address [address] [place] [address] Care Team Providers Care Drag Sawyer Name Role Phone Unavailable Primary Care Provider Unavailabl e Encounter Details Date Type Department Care Team (Late st Contact Info) Description 12/23/2013 Historical Ophthalmology RST OPH Krista Chiang, C.O.A. [address] [place] [phone] Social History Tobacco Use Types Packs/Day Years Used Date Smoking Tobacco: Never Assessed Sex and Gender Information Value Date Recorded Sex Assigned at Female 08/21/2017 3:02 PM CDT Gender Identity Female 08/21/2017 3:02 PM CDT Sexual Orientation Straight 08/21/2017 3: 02 PM CDT documented as of this encounter Progress Notes * Krista Chiang - 12/23/2013 8:13 AM CDT Eye Subsequent Visit HISTORY OF PRESENT ILLNESS Listing for Cataract surgery on the Left eye with Dr. Zamora on January 182013. Patient was given brochure with call in instructions. Patient signed consent and IOL's are done. Patient denies being a diabetic. CDM Reports - EYESV Id: [id number] Status: Fnl documented in this encounter Plan of Treatment Not on file documented as of this encounter Visit Diagnoses Not on filedocumented in this encounter
--- OUTSIDE RECORDS SUMMARY | 2023-12-16 08:52 | XMS_ITS | Encounter Summary ---
Author Organization [facility] Address [address] [place] [address] Care Team Providers Care Online Facilitator Name Role Phone Unavailable Primary Care Provider Unavailabl e Encounter Details Date Type Department Care Team (Late st Contact Info) Description 12/26/2011 Historical Ophthalmology RST OPH Patys Dewey O.D. [address] [place] [phone] Social History Tobacco Use Types Packs/Day Years Used Date Smoking Tobacco: Never Assessed Sex and Gender Information Value Date Recorded Sex Assigned at Female 08/21/2017 3:02 PM CDT Gender Identity Female 08/21/2017 3:02 PM CDT Sexual Orientation Straight 08/21/2017 3: 02 PM CDT documented as of this encounter Progress Notes * Patsy Dewey O.D. - 12/26/2011 1:06 PM CDT Eye General CHIEF COMPLAINT vasculitis / eye exam HISTORY OF PRESENT ILLNESS Vision stable ; denies floaters ; denies flashers of light s and Patient denies ocular pain. IMPRESSION / REPORT / PLAN #1 Refractive error (hyperopia, presbyopia). Plan: spectacle prescription (Refraction 1) given. #2 Vasculitis No evidence of ocular sequelae. #3 mild cataracts, both monitor DIAGNOSIS #1 Refractive error (hyperopia, presbyopia). #2 Vasculitis #3 mild cataracts, both CDM Reports - EYEGEN Id: [id number] Status: Fnl documented in this encounter Plan of Treatment Not on file documented as of this encounter Visit Diagnoses Not on filedocumented in this encounter
--- OUTSIDE RECORDS SUMMARY | 2023-12-16 08:52 | XMS_ITS | Encounter Summary ---
Author Organization [facility] Address [address] [place] [address] Care Team Providers Care Risk Management Manager Name Role Phone Unavailable Primary Care Provider Unavailabl e Encounter Details Date Type Department Care Team (Late st Contact Info) Description 2006 Historical Ophthalmology RST OPH Sky Monsivais O.D. [address] [place] [phone] Social History Tobacco Use Types Packs/Day Years Used Date Smoking Tobacco: Never Assessed Sex and Gender Information Value Date Recorded Sex Assigned at Female 08/21/2017 3:02 PM CDT Gender Identity Female 08/21/2017 3:02 PM CDT Sexual Orientation Straight 08/21/2017 3: 02 PM CDT documented as of this encounter Progress Notes * Sky Monsivais O.D. - 2006 7:59 AM CDT Eye General HISTORY OF PRESENT ILLNESS Last eye exam 12-10. No vision complaints at distance or at near with current glasses. Treated on prednisone for 1 year for control of vasculitis. Denies eye pain, floaters, flashes, or diplopia. IMPRESSION / REPORT / PLAN #1 Screen for ocular finding in systemic medication: prednisone No evidence of toxicity; continue to monitor #2 Refractive error (hyperopia, presbyopia). Plan: spectacle prescription (Refraction 1) given. DIAGNOSIS #1 Screen for ocular finding in systemic medication: prednisone #2 Refractive error (hyperopia, presbyopia). [facility] Reports - EYEGEN Id: [id number] Status: Fnl documented in this encounter Plan of Treatment Not on file documented as of this encounter Visit Diagnoses Not on filedocumented in this encounter
--- OUTSIDE RECORDS SUMMARY | 2023-12-16 08:52 | XMS_ITS | Encounter Summary ---
Author Organization [facility] Address [address] [place] [address] Care Team Providers Care Guest Service Representative Name Role Phone Unavailable Primary Care Provider Unavailabl e Encounter Details Date Type Department Care Team (Late st Contact Info) Description 11/15/2013 Historical Ophthalmology RST OPH Tani Zamora M.D. [address] [place] [phone] Social History Tobacco Use Types Packs/Day Years Used Date Smoking Tobacco: Never Assessed Sex and Gender Information Value Date Recorded Sex Assigned at Female 08/21/2017 3:02 PM CDT Gender Identity Female 08/21/2017 3:02 PM CDT Sexual Orientation Straight 08/21/2017 3: 02 PM CDT documented as of this encounter Progress Notes * Tani Zamora M.D. - 11/15/2013 9:20 AM CDT Eye General CHIEF COMPLAINT Cataract evaluation; decreased vision HISTORY OF PRESENT ILLNESS Blurred vision; both eyes (right > left); x 1 year; constantly; symptoms are moderate. Denies flashes, floaters and diplopia. Patient denies ocular pain. IMPRESSION / REPORT / PLAN #1 cataracts RIGHT>L. visually significant. RBA RIGHT cataract surgery discussed, pt wishes to proceed. get iols, target plano DIAGNOSIS #1 cataracts CDM Reports - EYEGEN Id: [id number] Status: Fnl documented in this encounter Plan of Treatment Not on file documented as of this encounter Visit Diagnoses Not on filedocumented in this encounter
--- OUTSIDE RECORDS SUMMARY | 2023-12-16 08:52 | XMS_ITS ---
Author Organization [facility] Address [address] [place] [address] Care Team Providers Care Service Dog Trainer Name Role Phone Unavailable Unavailable Unavailable Surgery Details Not on file Complications Check Surgery Details section. Procedure Estimated Blood Loss Check Surgery Details section. Procedure Findings Check Surgery Details section. Procedure Specimens Taken Check Surgery Details section.
== END 2023-12-11 13:29 | disposition home or self-care (01) ==
LOC: NFLDREF 12-16 08:50
PROVIDERS: PCP Internal Medicine; Referring Provider Internal Medicine; Visit Provider Internal Medicine
DX: E03.9 Hypothyroidism, unspecified (principal); I10 Essential (primary) hypertension
CPT/HCPCS: 80048; 84443

== ENCOUNTER 2023-12-29 09:54 | Outpatient (CLI) | payer MEDICARE, OTHER, SELFPAY ==
--- OUTSIDE RECORDS SUMMARY | 2023-12-29 09:56 | XMS_ITS | Clinical Summary ---
Author Organization [facility] Address [place], [place] [address] Care Team Providers Care Sr. Consultant Name Role Phone Daniel Gorman Primary Care Provider Unavaila ble Allergies Active Allergy Reactions Criticality Noted Date Comments Codesurinder Hivalma 01/15/2014 Sulfa (Sulfonamide Antibiotics) Nausea And Vomiting [...] age 65+ 12/07/2023 04/03/2009, 009 Care Teams Sr. Consultant Relationship Specialty Start Date End Date Daniel Gorman PCP - General 04/03/09
--- OUTSIDE RECORDS SUMMARY | 2023-12-29 09:57 | XMS_ITS | Encounter Summary ---
Author Organization [facility] Address [address] [place] [address] Care Team Providers Care Polisher And Buffer Name Role Phone Unavailable Primary Care Provider Unavailabl e Encounter Details Date Type Department Care Team (Late st Contact Info) Description 11/23/2008 Historical Ophthalmology RST OPH Sky Monsivais O.D. [address] [place] [phone] Social History Tobacco Use Types Packs/Day Years [...] #2 Vasculitis CDM Reports - EYEGEN Id: [id number] Status: Fnl documented in this encounter Plan of Treatment Not on file documented as of this encounter Visit Diagnoses Not on filedocumented in this encounter
--- OUTSIDE RECORDS SUMMARY | 2023-12-29 09:57 | XMS_ITS | Encounter Summary ---
Author Organization [facility] Address [address] [place] [address] Care Team Providers Care Stallion Keeper Name Role Phone Unavailable Primary Care Provider Unavailabl e Encounter Details Date Type Department Care Team (Late st Contact Info) Description 01/23/2015 Historical Ophthalmology RST OPH Tani Zamora M.D. [address] [place] [phone] Social History Tobacco Use Types Packs/Day Years [...] refractive error CDM Reports - EYEGEN Id: [id number] Status: Fnl documented in this encounter Plan of Treatment Not on file documented as of this encounter Visit Diagnoses Not on filedocumented in this encounter
--- OUTSIDE RECORDS SUMMARY | 2023-12-29 09:57 | XMS_ITS | Referral Summary ---
Author Organization [facility] Address [address] [place] [address] Care Team Providers Care Skid Road Man Name Role Phone Unavailable Primary Care Provider Unavailabl e Source Comments Patient records contain information from all sites at [facility]. For routine questions regarding patient records, call [phone] during business hours, M-F 8:00 AM - 5:00 PM Central Time. Record requests for emergency care only can be directed to [phone] at any time.[facility] Allergies Active Allergy Reactions Criticality Noted Date Comments Azathioprine GI intolerance Medium 11/11/2007 Vomiting Codeine GI intolerance Medium 09/10/2004 Nausea and Vomiting Estradiol Rash Medium 01/06/2017 Hydrocodone GI intolerance Medium 02/23/2014 Nausea and Vomiting Mycophenolic Acid Other (see comments) Medium 11/11/19 08 Bladder infection Propoxyphene GI intolerance Medium 09/10/2004 Nausea and Vomiting Pyridostigmine [place] Hives (Reselect Reaction) Low 07/04/2020 Sulfa (Sulfonamide [...] Answer Date Recorded PHQ-2 Score 0 07/04/2020 [facility] of Occupat ional Health - Occupational [...] T Respiratory Rate 22 05/31/2019 3:15 PM CIGAR PACKER AND GRADER Oxygen Saturation 97% 05/31/2019 3:15 PM CIGAR PACKER AND GRADER Inhaled Oxygen Concentration - - Weight 59.7 kg (131 lb 9.8 oz) 07/04/2020 1:35 P M CDT Height 153.5 cm (5' 0.43) 07/04/2020 1:35 PM CD T Body Mass Index 25.34 07/04/2020 1:35 PM CDT Plan of Treatment Not on file Medical Devices Implanted Type Area Internal Sales Engineer Device Identifier Shelf Expiration Date Model / Serial / Lot Hardware E.G. Pins/Screws/Ro ds Hardware e.g. pins/screws/ rods Toes Description:Two pins in Left great toe Zulayrpancho Rp Mkiii Tiunite 4.00mm Rp 4.00mm X 13.00mm Implanted:Qty: 1 on 08/05/2012 by Deny Thurston D.D.S. Hardware e.g. pins/screws/ rods Mouth [employer] [id number] / / [id number] Description:Site #22 Branemark Rp Mkiii Tiunite 4.00mm Rp 4.00mm X 13.00mm Implanted:Qty: 1 on 08/05/2012 by Deny Thurston D.D.S. Hardware e.g. pins/screws/ rods Mouth [employer] [id number] / / [id number] Description:Site #27 Conversions - Default Historical Implant Device Implanted:11/2014 (Quantity not on file) [facility] Other Description:Device Status Te xt - MiscOther. 2 dental implants lower jaw. Lens Nate 22.0d X 6.0mm - Berg [id number] Implanted:Qty: 1 on 11/16/2013 Ocular Lens Right: Other/Legacy - See Implant Description [employer] Description:Device Manufactu rer - [employer]. Body Location - Right. Device Status Text - [id number]. Lens Nate 22.0d X 6.0mm - Berg [id number] Implanted:Qty: 1 on 01/18/2014 Ocular Lens Left: Other/Legacy - See Implant Description [employer] Description:Device Manufactu rer - [employer]. Body Location - Left. Device Status Text - [id number]. Align Sling Retropubic - Berg [id number] Implanted:Qty: 1 on 02/15/2014 Urogenital Implant Other/Legacy - See Implant Description [employer] Description:Device Manufactu rer - [employer] Patient Care Division. Body Location - Other. Not Applicable. Device Status Text - [id number]. Procedures Procedure Name Priority Date/Time Associated Diagnosis [...] - 145 mmol/L 08/04/2020 10:15 AM CDT DT Blood (Blood, Venous) 08/04/2020 9:13 AM CDT 08/04/2020 9:38 AM CDT Velma FITCH P.A.-C. LAB B LOOD ADD-ON Performing Organization Address City/[facility]/ZIP Co de Phone Number [facility] 200 [place] [address], [facility] [place] 200 [place] [address] * Potassium (08/04/2020 9:13 AM CDT) Potassium, S 4.1 3.6 - 5.2 mmol/L 08/04/2020 10:15 AM CDT DT Blood (Blood, Venous) 08/04/2020 9:13 AM CDT 08/04/2020 9:38 AM CDT Yoly Bowens.-C. LAB B LOOD ADD-ON Performing Organization Address City/[facility]/ZIP Co de Phone Number [facility] 200 [place] [address], [facility] 200 [place] [address] * (ABNORMAL) Creatinine with Estimated GFR (08/04/2020 9:13 AM CDT) Creatinine 0.57(L) 0.59 - 1.04 mg/dL 08/04/2020 10:15 AM CDT DTL eGFR-Non Black/ 88 >=60 mL/min/BSA 08/04/2020 10:15 AM CDT DTL Comment: ----ADDITIONAL INFORMATION---- Estimated GFR calculated using the 2009 CKD_EPI creatinine equation. eGFR-Black/Afri can Haitian >90 >=60 mL/min/BSA 08/04/2020 10:15 AM CDT DTL Comment: ----ADDITIONAL INFORMATION---- Estimated GFR calculated using the 2009 CKD_EPI creatinine equation. Blood (Blood, Venous) 08/04/2020 9:13 AM CDT 08/04/2020 9:38 AM CDT Velma FITCH P.A.-C. LAB B LOOD ADD-ON Performing Organization Address [facility] Co de Phone Number [facility] 200 [place] [address] * S-TSH (Thyroid-Stimulating Hormone - Sensitive) (07/04/2020 9:14 AM CDT) TSH, Sensitive 2.2 0.3 - 4.2 mIU/L 07/04/2020 10:24 AM CDT DTL Blood (Blood, Venous) 07/04/2020 9:14 AM CDT 07/04/2020 9:37 AM CDT Velma FITCH P.A.-C. LAB B LOOD ADD-ON Performing Organization Address [facility] Co de Phone Number [facility] 200 [place] [address] * CT Colonography (09/06/1999 8:26 AM CDT) [...] cholelithiasis. Electronically signed by: Alexus Stevens MD. [id number] 19-Sep-1999 09:39 Scott Soliman M.D. IMG CT PROCEDURES from Last 3 Months or Most Recently Relevant to Health Maintenance Advance Directives For more information, please contact: [phone] Documents on File Type Date Recorded Patient Continuous Weld Pipe Mill Supervisor Expl anation Advance Directives 03/18/2016 12:[address] document. See document viewer. Advance Directives 03/27/2006 12:[address] document[address] See document viewer. Advance Directives 09/25/2004 12:00 AM Xiomy [place] document. See document viewer.
--- OUTSIDE RECORDS SUMMARY | 2023-12-29 09:57 | XMS_ITS | Encounter Summary ---
Author Organization [facility] Address [address] [place] [address] Care Team Providers Care Motor Assembler Name Role Phone Unavailable Primary Care Provider Unavailabl e Encounter Details Date Type Department Care Team (Late st Contact Info) Description 12/23/2013 Historical Ophthalmology RST OPH Krista Chiang, C.O.A. [address] [place] [phone] Social History Tobacco Use Types Packs/Day Years [...] a diabetic. CDM Reports - EYESV Id: [id number] Status: Fnl documented in this encounter Plan of Treatment Not on file documented as of this encounter Visit Diagnoses Not on filedocumented in this encounter
--- OUTSIDE RECORDS SUMMARY | 2023-12-29 09:57 | XMS_ITS | Encounter Summary ---
Author Organization [facility] Address [address] [place] [address] Care Team Providers Care Automatic Operator Name Role Phone Unavailable Primary Care Provider Unavailabl e Reason for Visit * Reason Onset Date Comments Follow-up Orders 09/04/2023 Encounter Details Date Type Department Care Team (Latest Contact Info) Description 09/04/2023 Clinical Communication Department of Dental Specialties in [place], [place] [address] [place] [address] Kayla Howard D.M.D. [address] [place] [phone] Follow-up Orders Social History Tobacco Use Types [...] or relatives? Once a week 12/13/2019 Attends Yazidism Services Not on file 12/12 Active Member [...] Answer Date Recorded PHQ-2 Score 0 07/04/2020 [facility] [place] of Occupat ional Health - Occupational Stress [...]
--- OUTSIDE RECORDS SUMMARY | 2023-12-29 09:57 | XMS_ITS | Encounter Summary ---
Author Organization [facility] Address [address] [place] [address] Care Team Providers Care Talend Developer Name Role Phone Unavailable Primary Care Provider Unavailabl e Encounter Details Date Type Department Care Team (Late st Contact Info) Description 03/02/2014 Historical Ophthalmology RST OPH Tani Zamora M.D. [address] [place] [phone] Social History Tobacco Use Types Packs/Day Years [...] Document Viewer. CDM Reports - EYEPO Id: [id number] Status: Fnl documented in this encounter Plan of Treatment Not on file documented as of this encounter Visit Diagnoses Not on filedocumented in this encounter
--- OUTSIDE RECORDS SUMMARY | 2023-12-29 09:57 | XMS_ITS | Encounter Summary ---
Author Organization [facility] Address [address] [place] [address] Care Team Providers Care Napkin Band Wrapper Name Role Phone Unavailable Primary Care Provider Unavailabl e Encounter Details Date Type Department Care Team (Late st Contact Info) Description 11/15/2013 Historical Ophthalmology RST OPH Tani Zamora M.D. [address] [place] [phone] Social History Tobacco Use Types Packs/Day Years [...] #1 cataracts CDM Reports - EYEGEN Id: [id number] Status: Fnl documented in this encounter Plan of Treatment Not on file documented as of this encounter Visit Diagnoses Not on filedocumented in this encounter
--- OUTSIDE RECORDS SUMMARY | 2023-12-29 09:57 | XMS_ITS | Clinical Summary ---
Author Organization [facility] Address [address] [place] [address] Care Team Providers Care Rod Straightener Name Role Phone Unavailable Primary Care Provider Unavailabl e Source Comments Patient records contain information from all sites at [facility]. For routine questions regarding patient records, call [phone] during business hours, M-F 8:00 AM - 5:00 PM Central Time. Record requests for emergency care only can be directed to [phone] at any time.[facility] Allergies Active Allergy Reactions Criticality Noted Date Comments Azathioprine GI intolerance Medium 11/11/2007 Vomiting Codeine GI intolerance Medium 09/10/2004 Nausea and Vomiting Estradiol Rash Medium 01/06/2017 Hydrocodone GI intolerance Medium 02/23/2014 Nausea and Vomiting Mycophenolic Acid Other (see comments) Medium 11/11/19 08 Bladder infection Propoxyphene GI intolerance Medium 09/10/2004 Nausea and Vomiting Pyridostigmine [place] Hives (Reselect Reaction) Low 07/04/2020 Sulfa (Sulfonamide [...] [place] Stroke Mother's Brother 2 LYNNETTE DE LA [place] Lung cancer Sister 1 FAN DEL ROSARIO Macular degeneration Sister 1 FAN DEL ROSARIO Osteoporosis Sister 1 FAN DEL ROSARIO Coronary artery disease Sister 2 SUDHAKAR GUPTASLYN Diabetes Sister 2 SUDHAKAR HUNGN Obesity Sister 2 SUDHAKAR GUPTASLYN Macular degeneration Sister 3 [facility] Osteoporosis Sister 3 [facility] Thyroid disease Sister 3 [facility] Amblyopia Neg Hx Blindness Neg Hx Cancer Neg Hx Glaucoma Neg Hx Hypertension Neg Hx Retinal degeneration Neg Hx Retinal detachment Neg Hx Strabismus Neg Hx Vision loss Neg Hx Relation Name Status Comments Father TANA THOMPSON Maternal Grandmother Mother's Brother 1 [place] Mother's Brother 2 LYNNETTE CEFERINO Sister 1 FAN DEL ROSARIO Sister 2 SUDHAKAR GUPTASLYN Sister 3 [facility] Social History Tobacco Use Types Packs/Day Years [...] or relatives? 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 Oxygen Saturation 97% 05/31/2019 3:15 PM JUNIOR STAFF ACCOUNTANT Inhaled Oxygen Concentration - - Weight 59.7 kg (131 lb 9.8 oz) 07/04/2020 1:35 P M CDT Height 153.5 cm (5' 0.43) 07/04/2020 1:35 PM CD T Body Mass Index 25.34 07/04/2020 1:35 PM CDT Plan of Treatment Health Maintenance Due Date Last Done Comments RSV vaccine - (32-3 6 weeks) or 60+ years (1 - 1-dose 75+ series) 09/14/2014 Office Visit for Blood Press ure Check [...] Fall Risk Screen (Annual) 04/07/2023 COVID-19 Vaccine (5 - 2023-2 5 season) 2023 08/07/2021, 01/11/2021, 06/13/2020, Additional history [...] Cologuard Discontinued Medical Devices Implanted Type Area Hand Pattern Marker Device Identifier Shelf Expiration Date Model / Serial / Lot Hardware E.G. Pins/Screws/Ro ds Hardware e.g. pins/screws/ rods Toes Description:Two pins in Left great toe Branemark Rp Mkiii Tiunite 4.00mm Rp 4.00mm X 13.00mm Implanted:Qty: 1 on 08/05/2012 by Deny Thurston D.D.S. Hardware e.g. pins/screws/ rods Mouth [employer] [id number] / / [id number] Description:Site #22 Crystal Rp Mkiii Tiunite 4.00mm Rp 4.00mm X 13.00mm Implanted:Qty: 1 on 08/05/2012 by Deny Thurston D.D.S. Hardware e.g. pins/screws/ rods Mouth [employer] [id number] / / [id number] Description:Site #27 Conversions - Default Historical Implant Device Implanted:11/2014 (Quantity not on file) Misc Other Description:Device Status Te xt - MiscOther. 2 dental implants lower jaw. Lens Nate 22.0d X 6.0mm - Berg [id number] Implanted:Qty: 1 on 11/16/2013 Ocular Lens Right: Other/Legacy - See Implant Description [employer] Description:Device Manufactu rer - [employer]. Body Location - Right. Device Status Text - [id number]. Lens Nate 22.0d X 6.0mm - Berg [id number] Implanted:Qty: 1 on 01/18/2014 Ocular Lens Left: Other/Legacy - See Implant Description Nate [employer] Description:Device Manufactu rer - [employer]. Body Location - Left. Device Status Text - [id number]. Align Sling Retropubic - Berg [id number] Implanted:Qty: 1 on 02/15/2014 Urogenital Implant Other/Legacy - See Implant Description Description:Device Manufactu rer - [employer] Patient Care Division. Body Location - Other. Not Applicable. Device Status Text - [id number]. Procedures Procedure Name Priority Date/Time Associated Diagnosis [...] Results * Sodium (08/04/2020 9:13 AM CDT) Pathologist [facility] Sodium, S 142 135 - 145 mmol/L 08/04/2020 10:15 AM CDT DTL Blood (Blood, Venous) 08/04/2020 9:13 AM CDT 08/04/2020 9:38 AM CDT Velma FITCH, PMerlin.Allen. LAB B LOOD ADD-ON Performing Organization Address City/[facility]/ZIP Co de Phone Number [facility] [address] 200 [place] [address] * Potassium (08/04/2020 9:13 AM CDT) [facility] Potassium, S 4.1 3.6 - 5.2 mmol/L 08/04/2020 10:15 AM CDT DTL Blood (Blood, Venous) 08/04/2020 9:13 AM CDT 08/04/2020 9:38 AM CDT Velma FITCH, P.A.-C. LAB B LOOD ADD-ON Performing Organization Address City/[facility]/ZIP Co de Phone Number [facility] [address] 200 [place] [address] * (ABNORMAL) Creatinine with Estimated GFR (08/04/2020 9:13 AM CDT) [facility] Creatinine 0.57(L) 0.59 - 1.04 mg/dL 08/04/2020 10:15 AM CDT DTL eGFR-Non Black/ 88 >=60 mL/min/BSA 08/04/2020 10:15 AM CDT DTL Comment: ----ADDITIONAL INFORMATION---- Estimated GFR calculated using the 2009 CKD_EPI creatinine equation. eGFR-Black/Afri can Tristanian >90 >=60 mL/min/BSA 08/04/2020 10:15 AM CDT DTL Comment: ----ADDITIONAL INFORMATION---- Estimated GFR calculated using the 2009 CKD_EPI creatinine equation. Blood (Blood, Venous) 08/04/2020 9:13 AM CDT 08/04/2020 9:38 AM CDT Papito Bowens.A.-C. LAB B LOOD ADD-ON Performing Organization Address City/[facility]/ZIP Co de Phone Number [facility] 200 [place] [address], [facility] 200 [place] [address] * S-TSH (Thyroid-Stimulating Hormone - Sensitive) (07/04/2020 9:14 AM CDT) Pathologist [facility] TSH, Sensitive 2.2 0.3 - 4.2 mIU/L 07/04/2020 10:24 AM CDT DTL Blood (Blood, Venous) 07/04/2020 9:14 AM CDT 07/04/2020 9:37 AM CDT Velma FITCH, P.A.-C. LAB B LOOD ADD-ON [facility] 200 [place] [address], [facility] 200 [place] [address] * CT Colonography (09/06/1999 8:26 AM CDT) Anatomical Region Laterality Modality Computed Tomogra phy 09/06/1999 8:26 AM CDT Narrative 09/19/1999 9:39 AM CDT 06-Sep-1999 08:26:00 ??Exam: *CT Colonography Indications: [id number] ORIGINAL REPORT - 19-Sep-1999 09:39:00 ([id number]) ??CT colonography done for research purposes. Incidentally noted is cholelithiasis. Electronically signed by: ?? Alxeus Stevens MD. ??[id number] 19-Sep-1999 09:39 Procedure Note [...] Advance Directives For more information, please contact: [phone] Documents on File Type Date Recorded Patient Elevator Worker Expl anation Advance Directives 03/18/2016 12:00 AM [place] document. See document viewer. Advance Directives 03/27/2006 12:00 AM [place] document. See document viewer. Advance Directives 09/25/2004 12:00 AM Leg acy document. See document viewer.
--- OUTSIDE RECORDS SUMMARY | 2023-12-29 09:57 | XMS_ITS ---
Author Organization [facility] Address 200 [place] [address] Care Team Providers Care Cutter V Groove Name Role Phone Unavailable Unavailable Unavailable Surgery Details Not on file Complications Check Surgery Details section. Procedure Estimated Blood Loss Check Surgery Details section. Procedure Findings Check Surgery Details section. Procedure Specimens Taken Check Surgery Details section.
--- OUTSIDE RECORDS SUMMARY | 2023-12-29 09:57 | XMS_ITS | Encounter Summary ---
Author Organization [facility] Address [address] [place] [address] Care Team Providers Care Autocad Name Role Phone Unavailable Primary Care Provider Unavailabl e Reason for Visit * Reason Onset Date Comments Denture Reline 09/26/2023 Encounter Details Date Type Department Care Team (Latest Contact Info) Description 09/26/2023 Clinical Communication Department of Dental Specialties in [place], [place] [address] [place] [address] Kayla Howard D.M.D. [address] [place] [phone] Denture Reline Social History Tobacco Use Types [...] or relatives? Once a week 12/13/2019 Attends [employer] Not on file 12/12 Active Member [...] Answer Date Recorded PHQ-2 Score 0 07/04/2020 [facility] [place] of Occupat ional Health - Occupational Stress [...]
--- OUTSIDE RECORDS SUMMARY | 2023-12-29 09:57 | XMS_ITS | Encounter Summary ---
Author Organization [facility] Address [address] [place] [address] Care Team Providers Care Deputy Sheriff Building Guard Name Role Phone Unavailable Primary Care Provider Unavailabl e Encounter Details Date Type Department Care Team (Late st Contact Info) Description 11/15/2013 Historical Ophthalmology RST OPH Yun Joyner [address] [place] [address] Social History Tobacco Use Types Packs/Day Years [...] right eye by DR. Zamora November 16. [phone]. CDM Reports - EYESV Id: [id number] Status: Fnl documented in this encounter Plan of Treatment Not on file documented as of this encounter Visit Diagnoses Not on filedocumented in this encounter
--- OUTSIDE RECORDS SUMMARY | 2023-12-29 09:57 | XMS_ITS | Encounter Summary ---
Author Organization [facility] Address [address] [place] [address] Care Team Providers Care Malt Liquors Sales Supervisor Name Role Phone Unavailable Primary Care Provider Unavailabl e Encounter Details Date Type Department Care Team (Late st Contact Info) Description 2006 Historical Ophthalmology RST OPH Sky Monsivais O.D. [address] [place] [phone] Social History Tobacco Use Types Packs/Day Years [...] medication: prednisone #2 Refractive error (hyperopia, presbyopia). [facility] Reports - EYEGEN Id: [id number] Status: Fnl documented in this encounter Plan of Treatment Not on file documented as of this encounter Visit Diagnoses Not on filedocumented in this encounter
--- OUTSIDE RECORDS SUMMARY | 2023-12-29 09:57 | XMS_ITS | Encounter Summary ---
Author Organization [facility] Address [address] [place] [address] Care Team Providers Care Dust Collector Operator Name Role Phone Unavailable Primary Care Provider Unavailabl e Encounter Details Date Type Department Care Team (Late st Contact Info) Description 10/15/2013 Historical Ophthalmology RST OPH Sky Monsivais O.D. [address] [place] [phone] Social History Tobacco Use Types Packs/Day Years [...] visually significant. CD Reports - EYEGEN Id: [id number] Status: Fnl documented in this encounter Plan of Treatment Not on file documented as of this encounter Visit Diagnoses Not on filedocumented in this encounter
--- OUTSIDE RECORDS SUMMARY | 2023-12-29 09:57 | XMS_ITS | Encounter Summary ---
Author Organization [facility] Address [address] [place] [address] Care Team Providers Care Booky Name Role Phone Unavailable Primary Care Provider Unavailabl e Encounter Details Date Type Department Care Team (Late st Contact Info) Description 12/26/2011 Historical Ophthalmology RST OPH Patsy Dewey O.D. [address] [place] [phone] Social History Tobacco Use Types Packs/Day Years [...] cataracts, both CDM Reports - EYEGEN Id: [id number] Status: Fnl documented in this encounter Plan of Treatment Not on file documented as of this encounter Visit Diagnoses Not on filedocumented in this encounter
--- OUTSIDE RECORDS SUMMARY | 2023-12-29 09:57 | XMS_ITS | Encounter Summary ---
Author Organization [facility] Address [address] [place] [address] Care Team Providers Care Car Salter Name Role Phone Unavailable Primary Care Provider Unavailabl e Encounter Details Date Type Department Care Team (Late st Contact Info) Description 12/23/2013 Historical Ophthalmology RST OPH Tani Zamora M.D. [address] [place] [phone] Social History Tobacco Use Types Packs/Day Years [...] Document Viewer. CDM Reports - EYEPO Id: [id number] Status: Fnl documented in this encounter Plan of Treatment Not on file documented as of this encounter Visit Diagnoses Not on filedocumented in this encounter
--- NOTE | 2023-12-29 10:45 | CRLHL7_ITS ---
For Patients: As a result of the Century Cures Act, medical imaging exams and procedure reports are released immediately into your electronic medical record. You may view this report before your referring provider. If you have questions, please contact your health care provider. BILATERAL SCREENING MAMMOGRAM WITH COMPUTER-AIDED DETECTION AND TOMOSYNTHESIS TECHNIQUE: CC and MLO views were obtained. These mammographic images have been obtained using full-field digital technique. These mammographic images were interpreted with the benefit of computer-aided detection. Breast Tomosynthesis was used in this interpretation. COMPARISON FILM: 10/29/22, 09/04/21, 07/04/20. FINDINGS: There are scattered areas of fibroglandular density IMPRESSION: There is no radiographic evidence for malignancy. ASSESSMENT: BI-RADS Category 2: Benign RECOMMENDATION: Routine screening mammogram in 1 year. A lay language report of this examination will be provided to the patient. Jaylen George M.D. Diagnostic Radiologist [email or web address] EDUIN/Dictated by: Jaylen George MD @ 01/06/2024 12:08:00 PM (Electronically Signed)
== END 2023-12-29 09:55 | disposition home or self-care (01) ==
LOC: MAMMO 09:55
PROVIDERS: PCP Internal Medicine; Visit Provider Internal Medicine
DX: Z12.31 Encounter for screening mammogram for malignant neoplasm of breast (principal)
CPT/HCPCS: 77063; 77067

== ENCOUNTER 2024-07-26 11:18 | Outpatient (CLI) | payer MEDICARE, OTHER, SELFPAY | END 2024-07-26 11:19 | disposition home or self-care (01) | PROVIDERS: PCP Internal Medicine; Visit Provider Internal Medicine | DX: E03.9 Hypothyroidism, unspecified (principal); F03.90 Unspecified dementia, unspecified severity, without behavioral disturbance, psychotic disturbance, mood disturbance, and anxiety; Z11.3 Encounter for screening for infections with a predominantly sexual mode of transmission | CPT/HCPCS: 80053; 82607; 82728; 84443; 86592 ==

== ENCOUNTER 2024-08-07 13:18 | Outpatient (CLI) | payer MEDICARE, OTHER, SELFPAY | END 2024-08-07 13:19 | disposition home or self-care (01) | LOC: AMB 08-09 10:06 | PROVIDERS: PCP Internal Medicine; Visit Provider Family Medicine | DX: R41.82 Altered mental status, unspecified (principal) | CPT/HCPCS: A0425; A0429 ==

== ENCOUNTER 2024-08-07 14:22 | Inpatient (IN) | payer MEDICARE, OTHER, SELFPAY ==
[2024-08-07 14:25] VITALS: BP 160/81; PULSE 79; RESP 18; TEMP 36.6; O2SAT 97; BMI 19.4
--- OUTSIDE RECORDS SUMMARY | 2024-08-07 14:27 | XMS_ITS | Clinical Summary ---
Author Organization [facility] Address [address] [place] [address] Care Team Providers Care Forging Press Operator Name Role Phone Unavailable Primary Care Provider Unavailabl e Source Comments Patient records contain information from all sites at [facility]. For routine questions regarding patient records, call [phone] during business hours, M-F 8:00 AM - 5:00 PM Central Time. Record requests for emergency care only can be directed to [phone] at any time.[facility] Allergies Active Allergy Reactions Criticality Noted Date Comments Azathioprine GI intolerance Medium 11/11/2007 Vomiting Codeine GI intolerance Medium 09/10/2004 Nausea and Vomiting Estradiol Rash Medium 01/06/2017 Hydrocodone GI intolerance Medium 02/23/2014 Nausea and Vomiting Mycophenolic Acid Other (see comments) Medium 11/11/19 08 Bladder infection Propoxyphene GI intolerance Medium 09/10/2004 Nausea and Vomiting Pyridostigmine [place] Hives (Reselect Reaction) Low 07/04/2020 Sulfa (Sulfonamide Antibiotics) GI intolerance Medium 12/01/2008 Nausea Only Medications lisinopriL (PRINIVIL,ZESTR IL) 5 mg tablet TAKE ONE TABLET BY MOUTH ONE TIME DAILY 90 tablet 3 2 Active chlorhexidine (Peridex) 0.12 % mouthwash At morning and at bedtime, dip a toothbrush into mouthrinse and brush around the dental implants and gums gently. 480 mL 11 2 Active levothyroxine (SYNTHROID, LEVOTHROID) 50 mcg tablet TAKE ONE TABLET BY MOUTH ONE TIME DAILY 90 tablet 2 Active Hospital, Clinic, or Other Facility Administered [...] Nausea 08/25/2017 07/04/2020 Hypertension Borderline 06/19/200606/07 Immunizations Immunization Administration Dates Next Due H1N1 All Forms [...] 2 SUDHAKAR GUPTASLYN Diabetes Sister 2 SUDHAKAR SALINASLYN Obesity Sister 2 SUDHAKAR SALINASLYN Macular degeneration Sister 3 [facility] Osteoporosis Sister 3 [facility] Thyroid disease Sister 3 [facility] Amblyopia Neg Hx Blindness Neg Hx Cancer Neg Hx Glaucoma Neg Hx Hypertension Neg Hx Retinal degeneration Neg Hx Retinal detachment Neg Hx Strabismus Neg Hx Vision loss Neg Hx Relation Name Status Comments Father TANA THOMPSON Maternal Grandmother Mother's Brother 1 PALMA CEFERINO Mother's Brother 2 LYNNETTE CEFERINO Sister 1 FAN DEL ROSARIO Sister 2 SUDHAKAR GUPTASLYN Sister 3 [facility] Social History Tobacco Use Types Packs/Day Years [...] or relatives? Once a week 12/13/2019 Attends [employer] Services Not on file 12/12 Active Member [...] Answer Date Recorded PHQ-2 Score 0 07/04/2020 [facility] of Occupat ional Health - Occupational Stress [...] Answer Date Recorded Nutrition: EVOO Fat Source No 12/12 On average, how many serving s of fruits and vegetables do you eat per day (serving size is equal to 1 cup or approximately the size of a tennis ball)? 2-3 12/13/2019 Dental Answer Date Recorded Dental: Regular Dentist Unknown 12/21/19 23 Education Answer Date Recorded What is the highest level of school you have completed or the highest degree you have received? 12th grade 03/12/2019 Comments No Sex and Gender Information Value Date Recorded Sex Assigned at Female 08/21/2017 3:02 PM CDT Legal Sex Female 3:19 PM HEALTH DIRECTOR Gender Identity Female 08/21/2017 3:02 PM CDT Sexual Orientation Straight 08/21/2017 3: 02 PM CDT Occupation Industry Job Start Date Job End Date Retired Not on file Not on file Not on file Last Filed Vital Signs Vital Sign Reading Time Taken Comments Blood Pressure 151/71 07/04/2020 1:35 PM CDT AVG Pulse 62 07/04/2020 1:35 PM CDT Temperature 36.7 C (98.1 F) 05/31/2019 2:40 PM HEALTH DIRECTOR Respiratory Rate 22 05/31/2019 3:15 PM HEALTH DIRECTOR Oxygen Saturation 97% 05/31/2019 3:15 PM HEALTH DIRECTOR Inhaled Oxygen Concentration - - Weight 59.7 kg (131 lb 9.8 oz) 07/04/2020 1:35 P M CDT Height 153.5 cm (5' 0.43) 07/04/2020 1:35 PM CD T Body Mass Index 25.34 07/04/2020 1:35 PM CDT Plan of Treatment Health Maintenance Due Date Last Done Comments RSV vaccine - (32-36 weeks) or 60+ years (1 - 1-dose 75+ series) 09/14/2014 Office Visit for Blood Pressure Check / Re-check 07/04/2021 07/04/2020 Thyroid Stimulating Hormone (TSH) test for thyroid function 07/04/2021 07/04/2020, 03/15/2019, 02/16/2018, Additional history exists Creatinine Level (Kidney Function Test) 08/04/2021 08/04/2020, 07/04/2020, 05/13/2019, Additional history exists Potassium Level 08/04/2021 08/04/2020, 3 , 03/19/2019, Additional history exists Sodium Level 08/04/2021 08/04/2020, 3 , 03/19/2019, Additional history exists COVID-19 Vaccine ( season) 2023 08/07/2021, 01/11/2021, 06/13/2020, Additional history exists Influenza Vaccine (#1) 2024 , 02/03/2022, 01/16/2021, Additional history exists Depression Screening (Annual PHQ-2) 04/07/2024 Fall Risk Screen (Annual) 04/07/2024 DTaP,Tdap,and Td Vaccines (3 - Td or Tdap) 07/10/2031 07/09/2021, 01/23/2012, 05/08/2004, Additional history exists CT Colonography Discontinued 09/06/1999 Colonoscopy Discontinued 12/23/2017, 11/30/2007 Colorectal Cancer Surveillance Discontinued Pneumococcal vaccine (50+ years) Completed 03/09/2018, 12/13/2014, 01/25/2005 Zoster Vaccines Completed 09/14/2019, 12/2018, 11/24/2008 Cologuard Discontinued IPV Vaccines Aged Out No longer eligi ble based on patient's age to complete this topic Medical Devices Implanted Type Area Oiler And Greaser Device Identifier Shelf Expiration Date Model / Serial / Lot Hardware E.G. Pins/Screws/Ro ds Hardware e.g. pins/screws/ rods Toes Description:Two pins in Left great toe Crystal Pichardo Mkiii Tiunite 4.00mm Rp 4.00mm X 13.00mm Implanted:Qty: 1 on 08/05/2012 by Deny Thurston D.D.S. Hardware e.g. pins/screws/ rods Mouth [employer] [id number] / / [id number] Description:Site #22 Crystal Pichardo Mkiii Tiunite 4.00mm Rp 4.00mm X 13.00mm Implanted:Qty: 1 on 08/05/2012 by Deny Thurston D.D.S. Hardware e.g. pins/screws/ rods Mouth [employer] [id number] / / [id number] Description:Site #27 Conversions - Default Historical Implant Device Implanted:11/2014 (Quantity not on file) Misc Other Description:Device Status Te xt - MiscOther. 2 dental implants lower jaw. Lens Nate 22.0d X 6.0mm - Berg [id number] Implanted:Qty: 1 on 11/16/2013 Ocular Lens Right: Other/Legacy - See Implant Description NateSeedrs Description:Device Manufactu rer - [employer]. Body Location - Right. Device Status Text - [id number]. Lens Nate 22.0d X 6.0mm - Berg [id number] Implanted:Qty: 1 on 01/18/2014 Ocular Lens Left: Other/Legacy - See Implant Description NateSeedrs Description:Device Manufactu rer - [employer]. Body Location - Left. Device Status Text - [id number]. Align Sling Retropubic - Berg [id number] Implanted:Qty: 1 on 02/15/2014 Urogenital Implant Other/Legacy - See Implant Description Description:Device Manufactu rer - [employer]. Body Location - Other. Not Applicable. Device Status Text - [id number]. Procedures Procedure Name Priority Date/Time Associated Diagnosis [...] 9:38 AM CDT Velma FITCH, P.A.-C. LAB BLOOD ADD -ON Final Result Performing Organization Address [facility]/ZIP Co de Phone Number [facility] [place] [address] [place] [address], [facility] DTDivine [facility] [address] [place] [address] * Potassium (08/04/2020 9:13 AM CDT) Potassium, S 4.1 3.6 - 5.2 mmol/L 08/04/2020 10:15 AM CDT DTL Blood (Blood, Venous) 08/04/2020 9:13 AM CDT 08/04/2020 9:38 AM CDT Velma FITCH, P.A.-C. LAB BLOOD ADD -ON Final Result [facility] [place] [address] [place], [place] [id number] [place] [address] * (ABNORMAL) Creatinine with Estimated GFR (08/04/2020 9:13 AM CDT) Creatinine 0.57(L) 0.59 - 1.04 mg/dL 08/04/2020 10:15 AM CDT DTL eGFR-Non Black/ 88 >=60 mL/min/BSA 08/04/2020 10:15 AM CDT DTL Comment: ----ADDITIONAL INFORMATION---- Estimated GFR calculated using the 2009 CKD_EPI creatinine equation. eGFR-Black/Afri can Rwandan >90 >=60 mL/min/BSA 08/04/2020 10:15 AM CDT DTL Comment: ----ADDITIONAL INFORMATION---- Estimated GFR calculated using the 2009 CKD_EPI creatinine equation. Blood (Blood, Venous) 08/04/2020 9:13 AM CDT 08/04/2020 9:38 AM CDT Velma FITCH, P.A.-C. LAB BLOOD ADD -ON Final Result Performing Organization Address [facility]/RUST de Phone Number [facility] [place] [address] [place], [place] [id number] [place] [address] * S-TSH (Thyroid-Stimulating Hormone - Sensitive) (07/04/2020 9:14 AM CDT) TSH, Sensitive 2.2 0.3 - 4.2 mIU/L 07/04/2020 10:24 AM CDT DT Blood (Blood, Venous) 07/04/2020 9:14 AM CDT 07/04/2020 9:37 AM CDT Velma FITCH, P.A.-C. LAB BLOOD ADD -ON Final Result [facility] [address] [place] [address], [place] DTL [facility] [address] [place] [address] * Colonoscopy (12/23/2017 10:43 AM CDT) 12/23/2017 10:4 3 AM CDT Impressions [facility] - 12/23/2017 11:31 AM CDT Post-op Diagnoses: - Diverticulosis in the sigmoid colon. - The examination was otherwise normal. - No specimens collected. Narrative [facility] - 12/23/2017 11:31 AM CDT Gonda 9 GI GI Patient Name: Rubi Hayden Date of : 1940 Age: 77 Gender: Female Procedure Date: 12/23/2017 Procedure: Colonoscopy Providers: Jaylen Alas MD Referring Provider: Anisa Alcala MD Pre-op Diagnoses: Screening for colorectal malignant neoplasm Recommendation: - Discharge patient to home. - Resume previous diet. - Continue present medications. Findings: Multiple medium-mouthed diverticula were found in the sigmoid colon. The exam was otherwise without abnormality. Procedural Details: The patient was seen, evaluated, history reviewed, airway and heart-lung exams were performed by licensed provider and were satisfactory for planned level of sedation care. The risks, benefits and alternatives for the procedure and sedation were discussed and informed consent was obtained. A procedural pause was conducted in the presence of assisting personnel to verify the correct patient identity and procedure to be performed. Throughout the procedure, the patient's blood pressure, pulse, and oxygen saturations were monitored continuously. The Colonoscope was introduced under direct vision through the anus and advanced to 4 cm into the ileum. The colonoscopy was performed without difficulty. The patient tolerated the procedure well. The quality of the bowel preparation was adequate to identify polyps 6 mm and larger in size. Complications: No immediate complications. Sedation: Moderate (conscious) sedation was administered by the endoscopy nurse and supervised by the endoscopist. The following parameters were monitored: oxygen saturation, heart rate, blood pressure, and response to care. Total physician intraservice time was 23 minutes. Attending Participation: I personally performed the entire procedure. Jaylen Alas MD 12/23/2017 11:31:15 AM This report has been signed electronically. Number of Addenda: 0 us Anisa Alcala M.D. GI PROCEDURE ORDERABLES Fin al Result [facility] * CT Colonography (09/06/1999 8:26 AM CDT) Anatomical Region Laterality Modality Computed Tomogra phy 09/06/1999 8:26 AM CDT Narrative 09/19/1999 9:39 AM CDT 06-Sep-1999 08:26:00 Exam: *CT Colonography Indications: IRB [id number] ORIGINAL REPORT - 19-Sep-1999 09:39:00 ([id number]) CT colonography done for research purposes. Incidentally noted is cholelithiasis. Electronically signed by: Alexus Stevens MD. [phone] 19-Sep-1999 09:39 Procedure Note Holger Stevens M.D. - 07/14/2017 06-Sep-1999 08:26:00 Exam: *CT Colonography Indications: IRB [id number] ORIGINAL REPORT - 19-Sep-1999 09:39:00 ([id number]) CT colonography done for research purposes. Incidentally notedis cholelithiasis. Electronically signed by: Alexus Stevens MD. [phone] 19-Sep-1999 09:39 Scott Soliman M.D. IMG CT PROCEDURES Final Re sult from Last 3 Months or Most Recently Relevant to Health Maintenance Insurance MEDICARE MEDICA Advance Directives For more information, please contact: [phone] Documents on File Type Date Recorded Patient Wing Scorer Expl anation Advance Directives 03/18/2016 12:[address] document[address] See document viewer. Advance Directives 03/27/2006 12:[address] document. See document viewer. Advance Directives 09/25/2004 12:00 AM Xiomy dalton document. See document viewer.
--- OUTSIDE RECORDS SUMMARY | 2024-08-07 14:27 | XMS_ITS | Encounter Summary ---
Author Organization [facility] Address [address] [place] [address] Care Team Providers Care Button Tufter Name Role Phone Unavailable Primary Care Provider Unavailabl e Encounter Details Date Type Department Care Team (Late st Contact Info) Description 12/23/2013 Historical Ophthalmology RST OPH Krista Chiang [address] [place] [phone] Social History Tobacco Use Types Packs/Day Years Used Date Smoking Tobacco: Never Assessed Comments Unknown Sex and Gender Information Value Date Recorded Sex Assigned at Female 08/21/2017 3:02 PM CDT Legal Sex Female 3:19 PM ETL DATABASE DEVELOPER Gender Identity Female 08/21/2017 3:02 PM CDT [...] a diabetic. CDM Reports - EYESV Id: [id number] Status: Fnl documented in this encounter Plan of Treatment Not on file documented as of this encounter Visit Diagnoses Not on filedocumented in this encounter
--- OUTSIDE RECORDS SUMMARY | 2024-08-07 14:27 | XMS_ITS | Encounter Summary ---
Author Organization [facility] Address [address] [place] [address] Care Team Providers Care Urgent Care Name Role Phone Unavailable Primary Care Provider Unavailabl e Encounter Details Date Type Department Care Team (Late st Contact Info) Description 11/15/2013 Historical Ophthalmology RST OPH Tani Zamora M.D. [address] [place] [phone] Social History Tobacco Use Types Packs/Day Years Used Date Smoking Tobacco: Never Assessed Comments Unknown Sex and Gender Information Value Date Recorded Sex Assigned at Female 08/21/2017 3:02 PM CDT Legal Sex Female 3:19 PM MEDICAL PATHOLOGY TEACHER Gender Identity Female 08/21/2017 3:02 PM CDT [...] #1 cataracts CDM Reports - EYEGEN Id: [id number] Status: Fnl documented in this encounter Plan of Treatment Not on file documented as of this encounter Visit Diagnoses Not on filedocumented in this encounter
--- OUTSIDE RECORDS SUMMARY | 2024-08-07 14:27 | XMS_ITS | Encounter Summary ---
Author Organization [facility] Address [address] [place] [address] Care Team Providers Care State Game Protector Name Role Phone Unavailable Primary Care Provider Unavailabl e Encounter Details Date Type Department Care Team (Late st Contact Info) Description 11/15/2013 Historical Ophthalmology RST OPH Yun Joyner [address] [place] [phone] Social History Tobacco Use Types Packs/Day Years Used Date Smoking Tobacco: Never Assessed Comments Unknown Sex and Gender Information Value Date Recorded Sex Assigned at Female 08/21/2017 3:02 PM CDT Legal Sex Female 3:19 PM STAFF RN Gender Identity Female 08/21/2017 3:02 PM CDT Sexual Orientation Straight 08/21/2017 3: 02 PM CDT documented as of this encounter Progress Notes * Yun Joyner - 11/15/2013 10:18 AM CDT Eye Subsequent Visit HISTORY OF PRESENT ILLNESS Cataract surgery right eye by DR. Zamora November 16. [phone]. CDM Reports - EYESV Id: [id number] Status: Fnl documented in this encounter Plan of Treatment Not on file documented as of this encounter Visit Diagnoses Not on filedocumented in this encounter
--- OUTSIDE RECORDS SUMMARY | 2024-08-07 14:27 | XMS_ITS | Encounter Summary ---
Author Organization [facility] Address [address] [place] [address] Care Team Providers Care Patrol Police Sergeant Name Role Phone Unavailable Primary Care Provider Unavailabl e Encounter Details Date Type Department Care Team (Late st Contact Info) Description 12/23/2013 Historical Ophthalmology RST OPH Tani Zamora M.D. [address] [place] [phone] Social History Tobacco Use Types Packs/Day Years Used Date Smoking Tobacco: Never Assessed Comments Unknown Sex and Gender Information Value Date Recorded Sex Assigned at Female 08/21/2017 3:02 PM CDT Legal Sex Female 3:19 PM CARGO WORKER Gender Identity Female 08/21/2017 3:02 PM CDT Sexual Orientation Straight 08/21/2017 3: 02 PM CDT documented as of this encounter Progress Notes * Tani Zamora M.D. - 12/23/2013 7:23 AM CDT Eye Postoperative MULTI-VISIT DOCUMENT This document contains multiple patient visits and is available for review in Document Viewer. CDM Reports - EYEPO Id: [id number] Status: Fnl documented in this encounter Plan of Treatment Not on file documented as of this encounter Visit Diagnoses Not on filedocumented in this encounter
--- OUTSIDE RECORDS SUMMARY | 2024-08-07 14:27 | XMS_ITS | Encounter Summary ---
Author Organization [facility] Address [address] [place] [address] Care Team Providers Care Public Policy Associate Name Role Phone Unavailable Primary Care Provider Unavailabl e Encounter Details Date Type Department Care Team (Late st Contact Info) Description 01/23/2015 Historical Ophthalmology RST OPH Tani Zamora M.D. [address] [place] [phone] Social History Tobacco Use Types Packs/Day Years Used Date Smoking Tobacco: Never Assessed Comments Unknown Sex and Gender Information Value Date Recorded Sex Assigned at Female 08/21/2017 3:02 PM CDT Legal Sex Female 3:19 PM TALKING BOOKS LIBRARY CLERK Gender Identity Female 08/21/2017 3:02 PM CDT [...] pseudophakia #2 refractive error CDM Reports - [facility] Id: [id number] Status: Fnl documented in this encounter Plan of Treatment Not on file documented as of this encounter Visit Diagnoses Not on filedocumented in this encounter
--- OUTSIDE RECORDS SUMMARY | 2024-08-07 14:27 | XMS_ITS | Encounter Summary ---
Author Organization [facility] Address [address] [place] [address] Care Team Providers Care Still Operator Helper Name Role Phone Unavailable Primary Care Provider Unavailabl e Encounter Details Date Type Department Care Team (Late st Contact Info) Description 03/02/2014 Historical Ophthalmology RST OPH Tani Zamora M.D. [address] [place] [phone] Social History Tobacco Use Types Packs/Day Years Used Date Smoking Tobacco: Never Assessed Comments Unknown Sex and Gender Information Value Date Recorded Sex Assigned at Female 08/21/2017 3:02 PM CDT Legal Sex Female 3:19 PM BIOMETRIC SCREENER Gender Identity Female 08/21/2017 3:02 PM CDT Sexual Orientation Straight 08/21/2017 3: 02 PM CDT documented as of this encounter Progress Notes * Tani Zamora M.D. - 03/02/2014 8:59 AM CST Eye Postoperative MULTI-VISIT DOCUMENT This document contains multiple patient visits and is available for review in Document Viewer. CDM Reports - EYEPO Id: [id number] Status: Fnl documented in this encounter Plan of Treatment Not on file documented as of this encounter Visit Diagnoses Not on filedocumented in this encounter
--- OUTSIDE RECORDS SUMMARY | 2024-08-07 14:28 | XMS_ITS | Encounter Summary ---
Author Organization [facility] Address [address] [place] [address] Care Team Providers Care Store Leader Name Role Phone Unavailable Primary Care Provider Unavailabl e Encounter Details Date Type Department Care Team (Late st Contact Info) Description 11/23/2008 Historical Ophthalmology RST OPH Sky Monsivais O.D. [address] [place] [phone] Social History Tobacco Use Types Packs/Day Years Used Date Smoking Tobacco: Never Assessed Comments Unknown Sex and Gender Information Value Date Recorded Sex Assigned at Female 08/21/2017 3:02 PM CDT Legal Sex Female 3:19 PM SNAGGER Gender Identity Female 08/21/2017 3:02 PM CDT [...] (hyperopia, presbyopia). #2 Vasculitis CDM Reports - [facility] Id: [id number] Status: Fnl documented in this encounter Plan of Treatment Not on file documented as of this encounter Visit Diagnoses Not on filedocumented in this encounter
--- OUTSIDE RECORDS SUMMARY | 2024-08-07 14:28 | XMS_ITS | Encounter Summary ---
Author Organization [facility] Address [address] [place] [address] Care Team Providers Care Manager Employment Name Role Phone Unavailable Primary Care Provider Unavailabl e Encounter Details Date Type Department Care Team (Late st Contact Info) Description 10/15/2013 Historical Ophthalmology RST OPH Sky Monsivais O.D. [address] [place] [phone] Social History Tobacco Use Types Packs/Day Years Used Date Smoking Tobacco: Never Assessed Comments Unknown Sex and Gender Information Value Date Recorded Sex Assigned at Female 08/21/2017 3:02 PM CDT Legal Sex Female 3:19 PM TURNTABLE OPERATOR Gender Identity Female 08/21/2017 3:02 PM CDT [...] visually significant. CD Reports - EYEGEN Id: [id number] Status: Fnl documented in this encounter Plan of Treatment Not on file documented as of this encounter Visit Diagnoses Not on filedocumented in this encounter
--- OUTSIDE RECORDS SUMMARY | 2024-08-07 14:28 | XMS_ITS | Encounter Summary ---
Author Organization [facility] Address [address] [place] [address] Care Team Providers Care Costing Analyst Name Role Phone Unavailable Primary Care Provider Unavailabl e Encounter Details Date Type Department Care Team (Late st Contact Info) Description 12/26/2011 Historical Ophthalmology RST OPH Patsy Dewey O.D. [address] [place] [phone] Social History Tobacco Use Types Packs/Day Years Used Date Smoking Tobacco: Never Assessed Comments Unknown Sex and Gender Information Value Date Recorded Sex Assigned at Female 08/21/2017 3:02 PM CDT Legal Sex Female 3:19 PM CARPENTRY SPECIALIST Gender Identity Female 08/21/2017 3:02 PM CDT [...] cataracts, both CDM Reports - EYEGEN Id: [id number] Status: Fnl documented in this encounter Plan of Treatment Not on file documented as of this encounter Visit Diagnoses Not on filedocumented in this encounter
--- OUTSIDE RECORDS SUMMARY | 2024-08-07 14:28 | XMS_ITS | Encounter Summary ---
Author Organization [facility] Address [address] [place] [address] Care Team Providers Care Picker Machine Operator Name Role Phone Unavailable Primary Care Provider Unavailabl e Encounter Details Date Type Department Care Team (Late st Contact Info) Description 2006 Historical Ophthalmology RST OPH Sky Monsivais O.D. [address] [place] [phone] Social History Tobacco Use Types Packs/Day Years Used Date Smoking Tobacco: Never Assessed Comments Unknown Sex and Gender Information Value Date Recorded Sex Assigned at Female 08/21/2017 3:02 PM CDT Legal Sex Female 3:19 PM MANAGER SOCIAL MEDIA Gender Identity Female 08/21/2017 3:02 PM CDT [...] medication: prednisone #2 Refractive error (hyperopia, presbyopia). CDM Reports - [facility] Id: [id number] Status: Fnl documented in this encounter Plan of Treatment Not on file documented as of this encounter Visit Diagnoses Not on filedocumented in this encounter
--- OUTSIDE RECORDS SUMMARY | 2024-08-07 15:01 | XMS_ITS | Encounter Summary ---
Author Organization [facility] Address [address] [place] [address] Care Team Providers Care Union Representative Name Role Phone Unavailable Primary Care Provider Unavailabl e Encounter Details Date Type Department Care Team (Late st Contact Info) Description 12/23/2013 Historical Ophthalmology RST OPH Krista Chiang [address] [place] [address] Social History Tobacco Use Types Packs/Day Years Used Date Smoking Tobacco: Never Assessed Comments Unknown Sex and Gender Information Value Date Recorded Sex Assigned at Female 08/21/2017 3:02 PM CDT Legal Sex Female 3:19 PM TELEVISION WRITER Gender Identity Female 08/21/2017 3:02 PM CDT [...] a diabetic. CDM Reports - EYES[facility] Id: [id number] Status: Fnl documented in this encounter Plan of Treatment Not on file documented as of this encounter Visit Diagnoses Not on filedocumented in this encounter
--- OUTSIDE RECORDS SUMMARY | 2024-08-07 15:01 | XMS_ITS | Encounter Summary ---
Author Organization [facility] Address [address] [place] [address] Care Team Providers Care Technical Stenographer Name Role Phone Unavailable Primary Care Provider Unavailabl e Encounter Details Date Type Department Care Team (Late st Contact Info) Description 03/02/2014 Historical Ophthalmology RST OPH Tani Zamora M.D. 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 - 03/02/2014 8:59 AM CST Eye Postoperative MULTI-VISIT DOCUMENT This document contains multiple patient visits and is available for review in Document Viewer. CDM Reports - EYEPO Id: [id number] Status: Fnl documented in this encounter Plan of Treatment Not on file documented as of this encounter Visit Diagnoses Not on filedocumented in this encounter
--- OUTSIDE RECORDS SUMMARY | 2024-08-07 15:01 | XMS_ITS | Clinical Summary ---
Author Organization [facility] Address [address] [place] [address] Care Team Providers Care Display Designer Name Role Phone Unavailable Primary Care Provider Unavailabl e Source Comments Patient records contain information from all sites at [facility]. For routine questions regarding patient records, call [phone] during business hours, M-F 8:00 AM - 5:00 PM Central Time. Record requests for emergency care only can be directed to [phone] at any time.[facility] Allergies Active Allergy Reactions Criticality Noted Date Comments Azathioprine GI intolerance Medium 11/11/2007 Vomiting Codeine GI intolerance Medium 09/10/2004 Nausea and Vomiting Estradiol Rash Medium 01/06/2017 Hydrocodone GI intolerance Medium 02/23/2014 Nausea and Vomiting Mycophenolic Acid Other (see comments) Medium 11/11/19 08 Bladder infection Propoxyphene GI intolerance Medium 09/10/2004 Nausea and Vomiting Pyridostigmine [place] Hives (Reselect Reaction) Low 07/04/2020 Sulfa (Sulfonamide [...] 2 SUDHAKAR SALINASLYN Macular degeneration Sister 3 [facility] Osteoporosis Sister 3 [facility] Thyroid disease Sister 3 [facility] Amblyopia Neg Hx Blindness Neg Hx Cancer Neg Hx Glaucoma Neg Hx Hypertension Neg Hx Retinal degeneration Neg Hx Retinal detachment Neg Hx Strabismus Neg Hx Vision loss Neg Hx Relation Name Status Comments Father TANA THOMPSON Maternal Grandmother Mother's Brother 1 PALMA CEFERINO Mother's Brother 2 LYNNETTE CEFERINO Sister 1 FAN DEL ROSARIO Sister 2 SUDHAKAR GUPTASLYN Sister 3 [facility] Social History Tobacco Use Types Packs/Day Years [...] or relatives? 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 Pins/Screws/Ro ds Hardware e.g. pins/screws/ rods Toes Description:Two pins in Left great toe Crystal Pichardo Mkiii Tiunite 4.00mm Rp 4.00mm X 13.00mm Implanted:Qty: 1 on 08/05/2012 by Deny Thurston D.D.S. Hardware e.g. pins/screws/ rods Mouth [employer] [id number] / / [id number] Description:Site #22 Crystal Pichardo Mkiii Tiunite 4.00mm Rp 4.00mm X 13.00mm Implanted:Qty: 1 on 08/05/2012 by Deny Thurston D.D.S. Hardware e.g. pins/screws/ rods Mouth [employer] [id number] / / [id number] Description:Site #27 Conversions - Default Historical Implant Device Implanted:11/2014 (Quantity not on file) Misc Other Description:Device Status Te xt - MiscOther. 2 dental implants lower jaw. Lens Nate 22.0d X 6.0mm - Berg [id number] Implanted:Qty: 1 on 11/16/2013 Ocular Lens Right: Other/Legacy - See Implant Description [employer] Description:Device Manufactu rer - [employer]. Body Location - Right. Device Status Text - [id number]. Lens Nate 22.0d X 6.0mm - Berg [id number] Implanted:Qty: 1 on 01/18/2014 Ocular Lens Left: Other/Legacy - See Implant Description [employer] Description:Device Manufactu rer - [employer]. Body Location - Left. Device Status Text - [id number]. Align Sling Retropubic - Berg [id number] Implanted:Qty: 1 on 02/15/2014 Urogenital Implant Other/Legacy - See Implant Description Description:Device Manufactu rer - [employer]. Body Location - Other. Not Applicable. Device Status Text - [id number]. Procedures Procedure Name Priority Date/Time Associated Diagnosis [...] ADD -ON Final Result Performing Organization Address [facility]/ZIP Co de Phone Number [facility] [address] [place] [address], [facility] [address] [place] [address] * Potassium (08/04/2020 9:13 AM CDT) Potassium, S 4.1 3.6 - 5.2 mmol/L 08/04/2020 10:15 AM CDT DTL Blood (Blood, Venous) 08/04/2020 9:13 AM CDT 08/04/2020 9:38 AM CDT Velma FITCH, P.A.-C. LAB BLOOD ADD -ON Final Result [facility] [address] [place], [place] [id number] [place] [address] * (ABNORMAL) Creatinine with Estimated GFR (08/04/2020 9:13 AM CDT) Creatinine 0.57(L) 0.59 - 1.04 mg/dL 08/04/2020 10:15 AM CDT DTL eGFR-Non Black/ 88 >=60 mL/min/BSA 08/04/2020 10:15 AM CDT DTL Comment: ----ADDITIONAL INFORMATION---- Estimated GFR calculated using the 2009 CKD_EPI creatinine equation. eGFR-Black/Afri can Swiss >90 >=60 mL/min/BSA 08/04/2020 10:15 AM CDT DTL Comment: ----ADDITIONAL INFORMATION---- Estimated GFR calculated using the 2009 CKD_EPI creatinine equation. Blood (Blood, Venous) 08/04/2020 9:13 AM CDT 08/04/2020 9:38 AM CDT Velma FITCH, P.A.-C. LAB BLOOD ADD -ON Final Result Performing Organization Address [facility] de Phone Number [facility] [address] [place], [place] [phone] [place] [address] * S-TSH (Thyroid-Stimulating Hormone - Sensitive) (07/04/2020 9:14 AM CDT) TSH, Sensitive 2.2 0.3 - 4.2 mIU/L 07/04/2020 10:24 AM CDT DT Blood (Blood, Venous) 07/04/2020 9:14 AM CDT 07/04/2020 9:37 AM CDT Velma FITCH, P.A.-C. LAB BLOOD ADD -ON Final Result [facility] [address] [place] [address], [place] DTL [facility] [address] [place] [address] * Colonoscopy (12/23/2017 10:43 AM CDT) 12/23/2017 10:4 3 AM CDT Impressions [facility] - 12/23/2017 11:31 AM CDT Post-op Diagnoses: - Diverticulosis in the sigmoid colon. - The examination was otherwise normal. - No specimens collected. [facility]ative [facility] - 12/23/2017 11:31 AM CDT Gonda [...] Advance Directives For more information, please contact: [phone] Documents on File Type Date Recorded Patient Weights And Measures Inspector Expl anation Advance Directives 03/18/2016 12:[address] document. See document viewer. Advance Directives 03/27/2006 12:[address] document. See document viewer. Advance Directives 09/25/2004 12:00 AM Xiomy dalton document. See document viewer.
--- OUTSIDE RECORDS SUMMARY | 2024-08-07 15:01 | XMS_ITS | Encounter Summary ---
Author Organization [facility] Address [address] [place] [address] Care Team Providers Care Shipping Clerk Packing Name Role Phone Unavailable Primary Care Provider Unavailabl e Encounter Details Date Type Department Care Team (Late st Contact Info) Description 01/23/2015 Historical Ophthalmology RST OPH Tani Zamora M.D. [address] [place] [phone] Social History Tobacco Use Types Packs/Day Years Used Date Smoking Tobacco: Never Assessed Comments Unknown Sex and Gender Information Value Date Recorded Sex Assigned at Female 08/21/2017 3:02 PM CDT Legal Sex Female 3:19 PM DIGITAL MEDIA ANALYST Gender Identity Female 08/21/2017 3:02 PM [...] pseudophakia #2 refractive error [facility]: [id number] Status: Fnl documented in this encounter Plan of Treatment Not on file documented as of this encounter Visit Diagnoses Not on filedocumented in this encounter
--- OUTSIDE RECORDS SUMMARY | 2024-08-07 15:01 | XMS_ITS | Encounter Summary ---
Author Organization [facility] Address [address] [place] [address] Care Team Providers Care Lean Manufacturing Coordinator Name Role Phone Unavailable Primary Care Provider Unavailabl e Encounter Details Date Type Department Care Team (Late st Contact Info) Description 11/15/2013 Historical Ophthalmology RST OPH Yun Joyner [address] [place] [phone] Social History Tobacco Use Types Packs/Day Years Used Date Smoking Tobacco: Never Assessed Comments Unknown Sex and Gender Information Value Date Recorded Sex Assigned at Female 08/21/2017 3:02 PM CDT Legal Sex Female 3:19 PM 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 Zamora November 16. [phone]. CDM Reports - EYESV Id: [id number] Status: Fnl documented in this encounter Plan of Treatment Not on file documented as of this encounter Visit Diagnoses Not on filedocumented in this encounter
--- OUTSIDE RECORDS SUMMARY | 2024-08-07 15:01 | XMS_ITS | Encounter Summary ---
Author Organization [facility] Address [address] [place] [address] Care Team Providers Care Docking Saw Operator Name Role Phone Unavailable Primary Care Provider Unavailabl e Encounter Details Date Type Department Care Team (Late st Contact Info) Description 11/15/2013 Historical Ophthalmology RST OPH Tani Zamora M.D. 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
--- OUTSIDE RECORDS SUMMARY | 2024-08-07 15:01 | XMS_ITS | Encounter Summary ---
Author Organization [facility] Address [address] [place] [address] Care Team Providers Care Board Layer Name Role Phone Unavailable Primary Care Provider Unavailabl e Encounter Details Date Type Department Care Team (Late st Contact Info) Description 12/23/2013 Historical Ophthalmology RST OPH Tani Zamora M.D. 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 - 12/23/2013 7:23 AM CDT Eye Postoperative MULTI-VISIT DOCUMENT This document contains multiple patient visits and is available for review in Document Viewer. CDM Reports - EYEPO Id: [id number] Status: Fnl documented in this encounter Plan of Treatment Not on file documented as of this encounter Visit Diagnoses Not on filedocumented in this encounter
--- OUTSIDE RECORDS SUMMARY | 2024-08-07 15:01 | XMS_ITS | Encounter Summary ---
Author Organization [facility] Address [address] [place] [address] Care Team Providers Care Contour Grinder Name Role Phone Unavailable Primary Care Provider Unavailabl e Encounter Details Date Type Department Care Team (Late st Contact Info) Description 10/15/2013 Historical Ophthalmology RST OPH Sky Monsivais O.D. 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 CD Reports - [facility]YEGEN Id: [id number] Status: Fnl documented in this encounter Plan of Treatment Not on file documented as of this encounter Visit Diagnoses Not on filedocumented in this encounter
--- OUTSIDE RECORDS SUMMARY | 2024-08-07 15:02 | XMS_ITS | Encounter Summary ---
Author Organization [facility] Address [address] [place] [address] Care Team Providers Care Specimen Boss Name Role Phone Unavailable Primary Care Provider Unavailabl e Encounter Details Date Type Department Care Team (Late st Contact Info) Description 12/26/2011 Historical Ophthalmology RST OPH Patsy Dewey O.D. 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
--- OUTSIDE RECORDS SUMMARY | 2024-08-07 15:02 | XMS_ITS | Encounter Summary ---
Author Organization [facility] Address [address] [place] [address] Care Team Providers Care Clay Dry Press Operator Name Role Phone Unavailable Primary Care Provider Unavailabl e Encounter Details Date Type Department Care Team (Late st Contact Info) Description 11/23/2008 Historical Ophthalmology RST OPH Sky Monsivais O.D. 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 #2 Vasculitis CDM Reports - [facility] Id: [id number] Status: Fnl documented in this encounter Plan of Treatment Not on file documented as of this encounter Visit Diagnoses Not on filedocumented in this encounter
--- OUTSIDE RECORDS SUMMARY | 2024-08-07 15:02 | XMS_ITS | Clinical Summary ---
Author Organization [facility] Address [address] [place] [address] Care Team Providers Care Water Softener Service Supervisor Name Role Phone Daniel Gorman Primary Care Provider Unavaila ble Allergies Active Allergy Reactions Criticality Noted Date Comments Codeine Hives 01/15/2014 Sulfa (Sulfonamide Antibiotics) Nausea And Vomiting 01/15/2014 Medications nitrofurantoin macrocrystals/m onohydrate (MACROBID) 100 mg capsuleIndicati ons:Recurrent UTI (urinary tract infection) Take 1 capsule by mouth 2 times daily. 14 capsule 0 12/01/2014 Active Active Problems Problem Noted Date Diagnosed Date Female bladder prolapse 01/15/2014 Immunizations Immunization Administration Dates Next Due Influenza A (H1N1), Inactivated (Age >=3 Years) 04/03/2009 Influenza, IIV3 (Age >=3 years) 01/24/2009 Social History Tobacco Use Types Packs/Day Years Used Date Smoking Tobacco: Never Tobacco Cessation:Counseling Given: Yes Alcohol Use Standard Drinks/Week Comments Not Asked 0 (1 standard drink = 0.6 oz pur e alcohol) Comments Unknown Sex and Gender Information Value Date Recorded Sex Assigned at Not on file Legal Sex Female 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 Gender Identity Not on file Sexual Orientation Not on file Obstetrics History Last Filed Vital Signs Vital Sign Reading Time Taken Comments Blood Pressure 138/77 01/15/2014 11:08 AM CDT Pulse 63 01/15/2014 11:08 AM CDT Temperature 36.6 C (97.8 F) 01/15/2014 11:08 AM CDT Respiratory Rate - - Oxygen Saturation 100% [...] for age 18+ 09/14/1958 Tetanus booster 1959 Pneumococcal series for age 50+ (1 of 1 - PCV) 990 Zoster (shingles) series for age 50+ (1 of 2) 09/14/18 90 DEXA/DXA scan for age 65+ 09/14/2004 RSV vaccine for adults or pr egnancy (1 - 1-dose 75+ series) 09/14/2014 COVID-19 vaccine series ( - 2023- season) Influenza Vaccine (Season Ended) 2024 01/25/20 09 Insurance BLUE [employer] BLUE MR PB ONLY Care Teams Water Softener Service Supervisor Relationship Specialty Start Date End Date Daniel Gorman PCP - General 04/03/09
--- OUTSIDE RECORDS SUMMARY | 2024-08-07 15:02 | XMS_ITS | Encounter Summary ---
Author Organization [facility] Address [address] [place] [address] Care Team Providers Care Buyer Renter Name Role Phone Unavailable Primary Care Provider Unavailabl e Encounter Details Date Type Department Care Team (Late st Contact Info) Description 2006 Historical Ophthalmology RST OPH Sky Monsivais O.D. 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 CDM Reports - [facility] Id: [id number] Status: Fnl documented in this encounter Plan of Treatment Not on file documented as of this encounter Visit Diagnoses Not on filedocumented in this encounter
--- NOTE | 2024-08-07 15:38 | ED_ITS ---
HPI - General Adult General Chief complaint: Unspecified Complaint, Adult Stated complaint: Unspecified Time Seen by Provider: 08/07/24 14:31 History of Present Illness HPI narrative: This 83-year-old female comes in on a police transport hold and comes in by ambulance for evaluation. She is convinced that there are people coming into her home and these people are old time friends or acquaintances of her who has Parkinson's disease. She states that they are wanting to head take a shower and eat there and even sleep in the bed with her . The patient states she is not sure how these people are getting into the home as the doors are locked. The patient is pleasant and cooperative on my initial visit and yet states that her daughter is a bossy cow who is trying to control things. Patient did have a visit to her primary physician a couple weeks ago with the same kind of concerns. The patient has very poor insight into all this and is convinced that there are people coming into her home. She herself states that she does not feel unsafe to herself. She did have labs done a couple weeks ago with normal results. There was follow-up planned did do an MRI and further testing but the patient has not cooperated with these plans. Related Data Previous Rx's ?Medication ?Instructions ?Recorded levothyroxine 50 mcg tablet 50 mcg PO QDAY #90 tabs 12/11/23 lisinopril 5 mg tablet 5 mg PO QDAY #90 tabs 12/11/23 Allergies Allergy/AdvReac Type Severity Reaction Status Date / Time estradiol Allergy Unknown Unknown Verified 07/26/24 10:32 hydrocodone Allergy Unknown Unknown Verified 07/26/24 10:32 mycophenolic acid Allergy Unknown Unknown Verified 07/26/24 10:32 propoxyphene Allergy Unknown Unknown Verified 07/26/24 10:32 codeine Allergy Verified 07/26/24 10:32 Sulfa (Sulfonamide Allergy Verified 07/26/24 10:32 Antibiotics) Review of Systems Status of ROS: Reports: 10 or more systems reviewed and unremarkable except as noted in History and below Narrative: Constitutional: No fevers, no weight gain or loss. Eyes: No discharge. No vision changes. HENT: No congestion, no sore throat, no ear pain. Cardiovascular: No chest pain, no palpitations. Respiratory: No shortness of breath, no wheezes, no cough. Gastrointestinal: No abdominal pain, no vomiting, no diarrhea. Genitourinary: No dysuria, no hematuria. Musculoskeletal: Normal range of motion. Skin: No rashes, no pruritis. Neurological: No dizziness, weakness, sensory change, speech change. Endo/Heme/Allergies: No bruising or bleeding. No polydipsia. Pysch: Patient states that she is seeing people come into her home who are hold acquaintances of her . She tells me that some of them she knows have but she states they are still coming into her home. All other systems reviewed and are negative. [facility] Medical History (Updated 08/07/24 @ 19:34 by Misael Crawford MD) Muscle weakness ?M62.81 - Muscle weakness (generalized) (ICD-10) Social History (Updated 12/11/23 @ 14:39 by Ita Winn ~ [facility]) What is your current living situation?: I presently have a place to live Problems where you live: no known problems In the past 12 months, utilities in danger of being shut off: no In past 12 months, lack of transportation kept you from medical appts, meetings, work, or getting things needed for daily living: no In the past 12 mos, have been you worried that your food would run out before you had money to buy more?: never true In the past 12 mos, the food you bought just didn't last and you didn't have money to buy more?: never true Smoking Status: Never smoker Do you use any of these nicotine containing products: None Second hand tobacco smoke exposure: No How often do you have a drink containing alcohol: never How often do you have six or more drinks on one occasion: Never AUDIT-C Alcohol total score: 0 Non-prescribed substance use: denies use How often does anyone, including family, friends and others, physically hurt you : never How often does anyone, including family, friends and others, insult or talk down to you: never How often does anyone, including family, friends and others, threaten you with harm: never How often does anyone, including family, friends and others, scream or curse at you: never service: No Exam Narrative: Exam Narrative: Constitutional: Well-developed, well-nourished, no acute distress. HEENT: Normocephalic, atraumatic. Neck: Normal range of motion. Nontender. Supple. Heart: Regular. No murmurs. Normal rate. Intact distal pulses. Lungs: Clear to auscultation. No chest discomfort. No wheezes, rhonchi, or rales. Abdomen: Normal bowel sounds. Nontender. No rebound tenderness. Genitalia: Deferred. Back: No midline tenderness. Normal range of motion. Extremities: Normal range of motion. No injury. Skin: Intact. No rash. Warm. No erythema or pallor. Neurologic: No altered sensation. No weakness. Alert and oriented. Psychiatric: Pleasant and cooperative but does show some distinct displeasure with circumstances happening at home and with her family. Nursing notes and vitals signs are reviewed. Const: Vital Signs, click to edit/add: Vital Signs - 24 hr 08/07/24 14:25 Temperature 97.9 F Pulse Rate [Pulse Oximeter] 79 Respiratory Rate 18 Blood Pressure [Ri t Upper Arm] 160/81 H Pulse Oximetry 97 Oxygen Delivery Me thod Room Air Course Vital Signs Vital signs: Initial Vital Signs Temperature 97.9 F 08/07/24 14:25 Temperature Source Temporal Artery Scan 08/07/24 14:25 Pulse Rate 79 08/07/24 14:25 Respiratory Rate 18 08/07/24 14:25 Blood Pressure 160/81 H 08/07/24 14:25 Blood Pressure Mean 107 H 08/07/24 14:25 Blood Pressure Position Supine 08/07/24 14:25 Pulse Oximetry 97 08/07/24 14:25 Oxygen Delivery Method Room Air 08/07/24 14:25 Vital Signs Temperature 97.9 F 08/07/24 14:25 Pulse Rate 79 08/07/24 14:25 Respiratory Rate 18 08/07/24 14:25 Blood Pressure 160/81 H 08/07/24 14:25 Pulse Oximetry 97 08/07/24 14:25 Oxygen Delivery Method Room Air 08/07/24 14:25 Temperature 97.9 F 08/07/24 14:25 Pulse Rate 79 08/07/24 14:25 Respiratory Rate 18 08/07/24 14:25 Blood Pressure 160/81 H 08/07/24 14:25 Pulse Oximetry 97 08/07/24 14:25 Oxygen Delivery Method Room Air 08/07/24 14:25 Medications Administered Medications: Discontinued Medications Generic Name Dose Route Start Last Admin Trade Name Nancy PRN Reason Stop Dose Admin Olanzapine 5 mg 08/07/24 15:24 08/07/24 18:19 Olanzapine 5 Mg Tab.Rapdis PO 08/07/24 15:25 5 mg ONCE ONE Administration Medical Decision Making MDM Narrative Medical decision making narrative: This patient is brought in on a police transport hold. She came by ambulance as her daughter called with concern about matters going on at home. The patient is certain that there are people coming into the home and she sees them at times. They come in at night by her report and want to have food and clothing and even sleep in the same bed as her . The patient states that the doors are locked and she does not know how the these people get into her house. Clearly she is hallucinating. She is not happy with family members who are pointing out some of these matters to her. I did speak with her daughter and received collateral information from her and also some from her . A [facility] health mental assessment was completed and a psychiatrist also did evaluate this patient recommending inpatient evaluation and treatment. The patient was resistant to this plan but I was able to convince her to do so going forward. She did receive an oral dose of Zyprexa [address] scan of her head shows no acut e findings. Additionally lab results also reassuring. The patient is medically clear for admission into an inpatient geriatric psych facility. Lab Data Labs: Lab Results 08/07/24 Range/Units 17:45 WBC 8.09 (4.50-11.00) K/uL RBC 4.82 (4.00-5.20) m/uL Hgb 13.9 (12.0-16.0) gm/dL Hct 42.6 (33.0-51.0) % MCV 88 (80-100) fL MCH 29 (26-34) pg MCHC 33 (32-36) gm/dL RDW Coeff of Tanya 12.2 (11.5-15.5) % Plt Count 237 (140-440) K/uL Neut % (Auto) 75.5 H (42.0-72.0) % Lymph % (Auto) 17.9 L (20-44) % [place] % (Auto) 5.8 (0.0-11.0) % Eos % (Auto) 0.2 (0.0-7.0) % Baso % (Auto) 0.5 (0.0-3.0) % Neut # (Auto) 6.10 (1.7-7.0) K/uL Lymph # (Auto) 1.40 (0.90-2.90) K/uL [place] # (Auto) 0.50 (0.00-0.90) K/UL Eos # (Auto) 0.02 (0.00-0.50) K/uL Baso # (Auto) 0.04 (0.00-0.30) K/uL Abs Immat Gran (auto) 0.01 (0.00-0.30) K/uL Imm/Tot Granulo (auto) 0.1 % Sodium 141 (135-149) mmol/L Potassium 3.3 L (3.6-5.1) mmol/L Chloride 103 (96-114) mmol/L Carbon Dioxide 28 (20-32) mmol/L Anion Gap 10 (7-15) mEq/L BUN 17 (7-30) mg/dL Creatinine 0.5 (0.5-1.5) mg/dL Estimated Creat Clear 31.79 Estimated GFR 92 ml/min Glucose 98 (60-115) mg/dL Calcium 9.9 (8.4-10.6) mg/dL TSH 2.390 (0.270-4.20) uIU/mL Imaging Data CT scan - head: Radiologist's impression: No acute intracranial process per unenhanced head CT. Discharge Plan Discharge Clinical Impression: Dementia, Hallucinations Patient Disposition: Xfer Other Prescriptions: No Action lisinopril 5 mg tablet 5 mg PO QDAY Qty: 90 3RF levothyroxine 50 mcg tablet 50 mcg PO QDAY Qty: 90 3RF Follow Up/Referrals: Mickie Walters MD [Primary Care Provider] - Stand Alone Forms: [employer] Info Instructions
--- NOTE | 2024-08-07 17:04 | CRLHL7_ITS ---
For Patients: As a result of the Century Cures Act, medical imaging exams and procedure reports are released immediately into your electronic medical record. You may view this report before your referring provider. If you have questions, please contact your health care provider. INDICATION: .DEMENTIA, HALLUCINATIONS TECHNIQUE: Head CT without contrast. COMPARISON: None. FINDINGS: Periventricular areas of low attenuation, likely due to chronic small vessel ischemic changes. Generalized volume loss. Atherosclerosis. No intracranial hemorrhage. No discrete mass or mass effect. There is no midline shift. The basilar cisterns are patent. No hydrocephalus. The padilla-white matter interface is otherwise preserved. No acute osseous abnormality. No extracalvarial soft tissue abnormality. The mastoid air cells are clear. The paranasal sinuses are well-aerated. The visualized portions of the orbits and globes are unremarkable. IMPRESSION: No acute intracranial process per unenhanced head CT. Please note that all CT scans at this facility use dose modulation, iterative reconstruction, and/or weight-based dosing when appropriate to reduce radiation dose to as low as reasonably achievable. Dictated by Jaylen Dalton MD @ 08/07/2024 5:50:29 PM (Electronically Signed)
[2024-08-07 17:56] LABS: Basophils Absolute Auto 0.04 K/uL (0.00-0.30); Basophils Percent Auto 0.5 % (0.0-3.0); Eosinophils Absolute Auto 0.02 K/uL (0.00-0.50); Eosinophils Percent Auto 0.2 % (0.0-7.0); Hematocrit 42.6 % (33.0-51.0); Hemoglobin* 13.9 gm/dL (12.0-16.0); Immature Granulocytes Abs Auto 0.01 K/uL (0.00-0.30); Immature Granulocytes Pct Auto 0.1 %; Lymphocytes Percent Auto 17.9 % (20-44); Mean Corpuscular HGB Conc 33 gm/dL (32-36); Mean Corpuscular Hemoglobin 29 pg (26-34); Mean Corpuscular Volume 88 fL (80-100); Monocytes Percent Auto 5.8 % (0.0-11.0); Neutrophils Percent Auto 75.5 % (42.0-72.0); Platelet Count* 237 K/uL (140-440); RDW Coefficient of Variation % 12.2 % (11.5-15.5); Red Blood Count 4.82 m/uL (4.00-5.20); White Blood Count* 8.09 K/uL (4.50-11.00)
[2024-08-07 18:01] LABS: Slide Review Reflex No
[2024-08-07 18:10] LABS: Chloride* 103 mmol/L (96-114); Potassium* 3.3 mmol/L (3.6-5.1); Sodium* 141 mmol/L (135-149)
[2024-08-07 18:13] LABS: Anion Gap 10 mEq/L (7-15); Blood Urea Nitrogen* 17 mg/dL (7-30); Calcium* 9.9 mg/dL (8.4-10.6); Carbon Dioxide* 28 mmol/L (20-32); Creatinine* 0.5 mg/dL (0.5-1.5); Est. Creatinine Clearance* 31.79; Estimated Glomerular Filt Rate 92 ml/min; Glucose* 98 mg/dL (60-115)
[2024-08-07] MEDS: OLANZapine 5 MG TAB.RAPDIS PO ×2 (18:19→22:11)
[2024-08-07 19:28] LABS: Appearance Urine Clear (Clear); Bilirubin Urine Negative (Negative); Blood Urine Negative (Negative); Color Urine Yellow (Yellow); Glucose Urine Negative (Negative); Ketones Urine 1+ (Negative); Leukocyte Esterase Urine 1+ (Negative); Nitrite Urine Negative (Negative); Protein Urine Negative (Negative); Specific Gravity Urine 1.015 (1.000-1.030); Urobilinogen Urine 0.2 (0.2-1.0)
[2024-08-07 19:42] LABS: RBC Urine 0-2 (0-2); WBC Urine 0-2 (0-5)
[2024-08-07 20:00] VITALS: BP 132/63; PULSE 72; RESP 16; TEMP 36.6; O2SAT 98
[2024-08-07 22:17] LABS: Amphetamine Screen Urine Negative (Negative); Barbiturate Screen Urine Negative (Negative); Benzodiazepines Screen Urine Negative (Negative); Cannabinoid Screen Urine Negative (Negative); Cocaine Screen Urine Negative (Negative); Methadone Screen Urine Negative (Negative); Methamphetamines Screen Urine Negative (Negative); Opiate Screen Urine Negative (Negative); Oxycodone Screen Urine Negative (Negative); Phencyclidine Screen Urine Negative (Negative); Tricyclic Antidepressant Urine Negative (Negative)
[2024-08-07 22:46] LABS: Acetaminophen* < 10.0 ug/mL (10.0-30.0); Ethanol* < 0.01 % (0.01-0.03); Salicylate* < 1.0 mg/dL (1.0-10)
--- NOTE | 2024-08-08 09:31 | ED.NURSE ---
I had long conversation with Alexandria's two daughter this AM. Reviewed medical results and current plan to find acceptance at in-patient [facility]. Younger daughter opted to visit with patient. This went well with patient able to engage in conversation. Prior to this visit she ordered breakfast and ate.
[2024-08-08 10:14] VITALS: BP 145/79; PULSE 96; RESP 18; TEMP 36.6; O2SAT 98
[2024-08-08] MEDS: lisinopriL 5 MG TABLET PO (10:37)
[2024-08-08] MEDS: LEVOTHYROXINE 50 MCG TABLET PO (10:37)
--- NOTE | 2024-08-08 11:38 | ED.NURSE ---
As of now [facility] L[facility], [facility] are at capacity. Information to be faxed to [facility] for review though they report no bed availability until tomorrow.
[2024-08-08 12:52] VITALS: BMI 20.1
[2024-08-08 13:26] VITALS: BP 154/82; PULSE 74; RESP 18; TEMP 36.4; O2SAT 97
[2024-08-08 15:00] VITALS: PULSE 74; RESP 18
--- NOTE | 2024-08-08 16:09 | P.IMHP_ITS ---
Assessment and Plan Assessment and plan (1) Hallucinations: Problem comment: -Pt is convinced that strangers and a known relatives are spending time in the house, eating her food, using the washer, and sleeping over. She states she is not sure how these people are getting into the home as the doors are locked. -toxic screen negative. -[facility] where not able to transfer her to another facility for psych evaluation and treatment and was accepted for admission at [facility] until we get an accept ing psych/geriatric facility. - A tele health mental assessment was completed at ED and a psychiatrist also did evaluate this patient recommending inpatient evaluation and treatment. The patient was resistant to this plan but was convinced by the ED Dr. -olanzapine ODT might help in case of agitation. -[facility] called back and are possibly taking the patient tomorrow. They asked for a COVID test, TSH and EKG and we faxed them that required documents. -will need to follow up with [facility] tomorrow for bed availability. Status: Acute (2) Dementia: Problem comment: Concerns for dementia previously mentioned at PCP notes. Status: Acute (3) Essential hypertension: Problem comment: On lisinopril Status: Acute (4) Hypothyroidism: Problem comment: On levothyroxine Status: Acute Total Time Spent Total Time Spent: Time spent: Today I spent 75 minutes seeing the patient, discussing the patient with ER staff, reviewing [facility]panse and EPIC notes/diagnostics, discussing the care plan with our care time that includes social work, PT/OT, pharmacy, RT, mcfp and documenting my impressions and plan in the medical record. Hospitalist- H&P: HPI History of Present Illness Date Seen: 08/08/24 Chief complaint: Unspecified Narrative: Rubi Hayden is a 83 year old female with past medical history of hypothyroidism and essential hypertension who presents to the ED by ambulance for psychiatric evaluation. Pt is convinced that strangers and a known relatives are spending time in the house, eating her food, using the washer, and sleeping over. She states she is not sure how these people are getting into the home as the doors are locked. Patient saw her primary physician on July 26 to discuss dementia and hallucinations. Her PCP ordered an MRI but the patient did not follow-up. Patient lives with her who has Parkinson's disease. None of the family lives close by. There is also a concern about her driving ability as she reportedly was lost recently. [facility] where not able to transfer her to another facility for psych evaluation and treatment and was accepted for admission at [facility] until we get an accepting psych/geriatric facility. A tele health mental assessment was completed at ED and a psychiatrist also did evaluate this patient recommending inpatient evaluation and treatment. The patient was resistant to this plan but was convinced by the ED Dr. Dalila Gupta called back and are possibly taking the patient tomorrow. They asked for a COVID test, TSH and EKG and we faxed them that required documents. Review of Systems Status of ROS: Reports: 6 or more systems reviewed and unremarkable except as noted in History and below [facility] Medical History (Updated 08/08/24 @ 19:26 by Kristy Freed MD) Muscle weakness ?M62.81 - Muscle weakness (generalized) (ICD-10) Social History (Updated 12/11/23 @ 14:39 by Ita Winn ~ [facility]) What is your current living situation?: I presently have a place to live Problems where you live: no known problems Problems where you live details: NA In the past 12 months, utilities in danger of being shut off: no In past 12 months, lack of transportation kept you from medical appts, meetings, work, or getting things needed for daily living: no In the past 12 mos, have been you worried that your food would run out before you had money to buy more?: never true In the past 12 mos, the food you bought just didn't last and you didn't have money to buy more?: never true Highest level of school completed/degree received: high school graduate Smoking Status: Never smoker Do you use any of these nicotine containing products: None Second hand tobacco smoke exposure: No How often do you have a drink containing alcohol: never How often do you have six or more drinks on one occasion: Never AUDIT-C Alcohol total score: 0 Non-prescribed substance use: denies use Caffeine: No How often does anyone, including family, friends and others, physically hurt you : never How often does anyone, including family, friends and others, insult or talk down to you: never How often does anyone, including family, friends and others, threaten you with harm: never How often does anyone, including family, friends and others, scream or curse at you: never service: No Meds Home Medications and Allergies Allergies Allergy/AdvReac Type Severity Reaction Status Date / Time estradiol Allergy Unknown Unknown Verified 07/26/24 10:32 hydrocodone Allergy Unknown Unknown Verified 07/26/24 10:32 mycophenolic acid Allergy Unknown Unknown Verified 07/26/24 10:32 propoxyphene Allergy Unknown Unknown Verified 07/26/24 10:32 codeine Allergy Verified 07/26/24 10:32 Sulfa (Sulfonamide Allergy Verified 07/26/24 10:32 Antibiotics) Exam Narrative: Exam Narrative: Physical exam GENERAL: Pleasant. Comfortable, no acute distress. HEAD AND NECK: Atraumatic, normocephalic CARDIOVASCULAR: RRR. Normal S1, S2. No murmurs. RESPIRATORY: Clear to auscultation B/L. Good air entry B/L. No wheezes or rhonchi. GASTROINTESTINAL: Not distended, not tender to palpation. NEUROLOGY: Alert, awake, oriented X 3. Normal speech. PSYCH: Possibly hallucinating. Patient was telling me that their worst strangers at home that were not invited and she does not know how to they get an though the doors were locked. Const: Vital Signs, click to edit/add: Vital Signs - 24 hr 08/07/24 20:00 08/08/24 10:14 08/08/24 13:26 Temperature 98 F 97.8 F 97.5 F L Pulse Rate [Left P ulse Oximeter] 74 Pulse Rate [Pulse Oximeter] 72 96 Respiratory Rate 16 18 18 Blood Pressure [Le ft Arm] 154/82 H Blood Pressure [Ri ght Upper Arm] 132/63 145/79 H Pulse Oximetry 98 98 97 Oxygen Delivery Me thod Room Air Room Air Hospitalist - H&P: Result Labs Labs: Short CBC 08/07/24 Range/Units 17:45 WBC 8.09 (4.50-11.00) K/uL Hgb 13.9 (12.0-16.0) gm/dL Hct 42.6 (33.0-51.0) % Plt Count 237 (140-440) K/uL BMP 08/07/24 17:45 Sodium 141 Potassium 3.3 L Chloride 103 Carbon Dioxide 28 BUN 17 Creatinine 0.5 Glucose 98 Calcium 9.9 Urine 08/07/24 Range/Units 19:10 Urine Color Yellow (Yellow) Urine Appearance Clear (Clear) Urine pH 7.0 (5.0-8.5) Ur Specific [place] 1.015 (1.000-1.030) Urine Protein Negative (Negative) Urine Glucose (UA) Negative (Negative) ECG Attestation: I personally reviewed and interpreted this ECG as follows: ECG interpretation date: 08/08/24 Interpretation: Sinus rhythm EKG, borderline NH interval Imaging CT scan - head: Radiologist's impression: INDICATION: .DEMENTIA, HALLUCINATIONS TECHNIQUE: Head CT without contrast. COMPARISON: None. FINDINGS: Periventricular areas of low attenuation, likely due to chronic small vessel ischemic changes. Generalized volume loss. Atherosclerosis. No intracranial hemorrhage. No discrete mass or mass effect. There is no midline shift. The basilar cisterns are patent. No hydrocephalus. The padilla-white matter interface is otherwise preserved. No acute osseous abnormality. No extracalvarial soft tissue abnormality. The mastoid air cells are clear. The paranasal sinuses are well-aerated. The visualized portions of the orbits and globes are unremarkable. IMPRESSION: No acute intracranial process per unenhanced head CT. Please note that all CT scans at this facility use dose modulation, iterative reconstruction, and/or weight-based dosing when appropriate to reduce radiation dose to as low as reasonably achievable. Dictated by Jaylen Dalton MD @ 08/07/2024 5:50:29 PM
[2024-08-08 17:17] LABS: SARS Antigen* Negative (Negative)
[2024-08-08] MEDS: POTASSIUM CHLORIDE 10 MEQ CAPSULE ER 30 MEQ PO (18:36)
--- NOTE | 2024-08-08 18:47 | PC.NURSE ---
Nursing Care Hours: [id number] Pt this shift arrived to unit alert and pleasant. No hallucinations this shift. Oriented to place, date, person. When recalling events that brought pt to hospital, pt says that it started with her husbands Parkinsons diagnosis. She then reports people who claimed to be family stopped by and one of the young men said his name was Hubert Hayden, and she states im to Hubert Hayden, you are not my . She said that that person also put on her husbands clothes and was laughing about it. After that, they left. Pt said she felt upset by incident. Pt declining lunch and fluids d/t believing she is getting picked up and going home. Trailer Chief explained that family was concerned about her health and wanted her to get checked out so she will be staying tonight. Pt was a little frustrated for wasting her time but easily redirected. Walking in room independently, stable gait. Walked brooke SBA with staff. Refused enoxaprin but accepted potassium. Trailer Chief spoke with Bailee, pt daughter and explained that pt will be observed tonight. Bed open at geriatric psych but has not been accepted.
[2024-08-08 23:30] VITALS: BP 132/71; PULSE 82; RESP 18; TEMP 36.4; O2SAT 99
[2024-08-09] VITALS (7 sets, daily range): BP systolic 117–139; BP diastolic 72; PULSE 104–130; RESP 16–18; O2SAT 97
[2024-08-09] MEDS: OLANZapine 5 MG TAB.RAPDIS PO ×2 (00:22→11:54)
[2024-08-09] MEDS: BENZOCAINE/MENTHOL 1 EACH LOZENGE MUCOUS MEM (00:23)
[2024-08-09] MEDS: HALOPERIDOL 5 MG/ML INJ IM (03:21)
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
--- NOTE | 2024-08-09 09:31 | P.DS_ITS ---
Documented by User: Valery Morris PA-C 08/19/24 14:29 DS: Providers Provider Date Seen: 08/09/24 Date of admission: 08/08/24 12:41 Primary care physician: Mickie Walters MD Admitting Clinician: Blair Keller MD Consults: 08/07/24 15:18 Consult to Telehealth Mental Assessment [CONS] Urgent Comment: Consulting Provider: Noe nathaniel [facility] 08/08/24 15:35 Consult to Occupational Therapy [CONS] Routine Comment: Reason(s) for OT Consult:: Evaluate and Treat Any Restrictions?:: No Restrictions Consult to Physical Therapy [CONS] Routine Comment: Reason(s) for PT Consult:: Evaluate and Treat Any Restrictions?:: No Restrictions Consult to Surface Ship Usw Supervisor [CONS] Routine Comment: Reason for Consult:: Discharge Planning Needs Attending Physician on discharge: CRISTOBAL Mercer PA-C Date of Discharge: 08/09/24 DS: Diagnosis Discharge Diagnosis (1) Agitation requiring sedation protocol: Status: Acute Problem details: -olanzapine 10mg 0730 08/10 -quetiapine 50mg TID (crushed with cranberry juice) -needed restraints less than 60 mins between IM or oral antipsychotics and has been calm and ate lunch after -RASS score after these two administrations (08/10): -2 at 1000, 0 by 1300 (2) Dementia: Status: Acute Problem details: Concern for Lewy Body Dementia. At this time AVOID Haldol, Respiradol, pramipexole and ropinirole. At medicare physical in 12/29 miniCog was 5/5. But PCP detected something seemed off; noted to watch for worsening symptoms. Daughter brought written concerns to appt in late July 2024. MMSE 23/30. MR was ordered but not completed. (3) Hallucinations: Status: Acute Problem details: -Pt is convinced that strangers and a known relatives are spending time in the house, eating her food, using the washer, and sleeping over. She states she is not sure how these people are getting into the home as the doors are locked. -toxic screen negative. -E.d. where not able to transfer her to another facility for psych evaluation and treatment and was accepted for admission at [facility] until we get an accepting psych/geriatric facility. - A tele health mental assessment was completed at ED and a psychiatrist also did evaluate this patient recommending inpatient evaluation and treatment. Initial concerns of above were brought forth to her PCP during a clinic visit on 07/26/2024. Her daughter, Damaris, had written a letter for her PCP to review with concerns of obvious hallucinations, paranoia. A mini-mental exam on 07/26/24 was 23/30. Of note, mini cog completed during her Medicare annual exam in December 2023 scored 5/5 however her PCP made note of concern that the patient seemed to befuddled and was concern enough for her to keep an eye on this. CT head showed no acute findings. Workup thus far shows no acute infectious process. Recent TSH unremarkable. Recent RPR negative. EKG NSR. Appropriate for transfer to inpatient geriatric psych facility for further evaluation and management. (4) Essential hypertension: Status: Acute Problem details: On lisinopril (5) Hypothyroidism: Status: Acute Problem details: On levothyroxine. TSH 2.39 (6) Hypokalemia: Status: Acute Problem details: -3.3. oral replacement ordered. DS: Summary Hospital Course Hospital Course: Course of care and details as noted above. Transfer to inpatient geriatric psych for further evaluation and management. Accepting is [facility]. Remainder of chronic medical comorbidities were monitored and managed with home medications. Status at Discharge Functional status at discharge: independent ambulation Overall status at discharge: patient is not back to baseline Time Spent with Patient Time attestation: Total time spent providing and/or coordinating discharge services: Time spent: Greater than 30 minutes Exam Narrative: Exam Narrative: PHYSICAL EXAM General: Anxious, otherwise in NAD Cardiovascular: RRR Pulmonary: No dyspnea Neurological: Alert, remains paranoid, no active hallucinations at this moment Skin: Warm, dry. Const: Vital Signs, click to edit/add: Vital Signs - 24 hr 08/08/24 10:14 08/08/24 13:26 08/08/24 15:00 Temperature 97.8 F 97.5 F L Pulse Rate [Left P ulse Oximeter] 74 74 Pulse Rate [Pulse Oximeter] 96 Respiratory Rate 18 18 18 Blood Pressure [Le ft Arm] 154/82 H Blood Pressure [Ri ght Upper Arm] 145/79 H Pulse Oximetry 98 97 Oxygen Delivery Me thod Room Air Room Air 08/08/24 23:30 08/09/24 03:13 08/09/24 03:13 Temperature 97.5 F L Pulse Rate [Left P ulse Oximeter] 82 Pulse Rate [Pulse Oximeter] Respiratory Rate 18 18 Blood Pressure [Le ft Arm] 132/71 Blood Pressure [Ri ght Upper Arm] Pulse Oximetry 99 97 Oxygen Delivery Me thod Room Air 08/09/24 03:13 08/09/24 03:30 08/09/24 04:13 Temperature Pulse Rate [Left P ulse Oximeter] 130 H 113 H Pulse Rate [Pulse Oximeter] Respiratory Rate 18 16 18 Blood Pressure [Le ft Arm] 139/72 117/72 Blood Pressure [Ri ght Upper Arm] Pulse Oximetry 97 97 Oxygen Delivery Me thod Room Air Room Air 08/09/24 07:00 08/09/24 07:00 Temperature Pulse Rate [Left P ulse Oximeter] 104 H 104 H Pulse Rate [Pulse Oximeter] Respiratory Rate 18 18 Blood Pressure [Le ft Arm] 126/72 Blood Pressure [Ri ght Upper Arm] Pulse Oximetry 97 Oxygen Delivery Me thod Room Air DS: Data Data Completed and Pending Labs on day of discharge: Labs from last 24 hours 08/08/24 16:46 SARS-CoV-2 Ag (Rapid) Negative Preliminary micro results at discharge 08/07/24 19:10 Urine Culture - Preliminary Urine,Clean Catch NO GROWTH AFTER [address] scan - head: Attestation: I have reviewed the pertinent imaging results. Radiologist's impression: Periventricular areas of low attenuation, likely due to chronic small vessel ischemic changes. Generalized volume loss. Atherosclerosis. No intracranial hemorrhage. No discrete mass or mass effect. There is no midline shift. The basilar cisterns are patent. No hydrocephalus. The padilla-white matter interface is otherwise preserved. No acute osseous abnormality. No extracalvarial soft tissue abnormality. The mastoid air cells are clear. The paranasal sinuses are well-aerated. The visualized portions of the orbits and globes are unremarkable. IMPRESSION: No acute intracranial process per unenhanced head CT. Discharge Plan Discharge Disposition: [facility] Date of Admission: 08/10/24 08:57 Attending Provider on Discharge: Betty Burris Primary Care Provider: Mickie Walters Condition: Stable Discharge Orders: Transfer of Care to Other Hospital (ORDER); Ordered 08/10/24 Ordered By: Betty Burris Discharge Comments: Transfer to inpatient geriatric psych Oxygen: No Urinary Catheter: No Services not available here: inpatient geriatric psych Documented by User: Betty Burris MD 08/10/24 14:57 DS: Providers Provider Attending Physician on discharge: Valery Morris, [facility], PA-C Betty Burris MD [facility] Hospitalist DS: Diagnosis Discharge Diagnosis (1) Agitation requiring sedation protocol: Status: Acute Problem details: -olanzapine 10mg 0730 08/10 -quetiapine 50mg TID (crushed with cranberry juice) -needed restraints less than 60 mins between IM or oral antipsychotics and has been calm and ate lunch after -RASS score after these two administrations (08/10): -2 at 1000, 0 by 1300 (2) Dementia: Status: Acute Problem details: Concern for Lewy Body Dementia. At this time AVOID Haldol, Respiradol, pramipexole and ropinirole. At medicare physical in 12/29 miniCog was 5/5. But PCP detected something seemed off; noted to watch for worsening symptoms. Daughter brought written concerns to appt in late July 2024. MMSE 23/30. MR was ordered but not completed. (3) Hallucinations: Status: Acute Problem details: -Pt is convinced that strangers and a known relatives are spending time in the house, eating her food, using the washer, and sleeping over. She states she is not sure how these people are getting into the home as the doors are locked. -toxic screen negative. -E.d. where not able to transfer her to another facility for psych evaluation and treatment and was accepted for admission at [facility] until we get an accepting psych/geriatric facility. - A tele health mental assessment was completed at ED and a psychiatrist also did evaluate this patient recommending inpatient evaluation and treatment. Initial concerns of above were brought forth to her PCP during a clinic visit on 07/26/2024. Her daughter, Damaris, had written a letter for her PCP to review with concerns of obvious hallucinations, paranoia. A mini-mental exam on 07/26/24 was 23/30. Of note, mini cog completed during her Medicare annual exam in December 2023 scored 5/5 however her PCP made note of concern that the patient seemed to befuddled and was concern enough for her to keep an eye on this. CT head showed no acute findings. Workup thus far shows no acute infectious process. Recent TSH unremarkable. Recent RPR negative. EKG NSR. Appropriate for transfer to inpatient geriatric psych facility for further ev aluation and management. (4) Essential hypertension: Status: Acute Problem details: On lisinopril (5) Hypothyroidism: Status: Acute Problem details: On levothyroxine. TSH 2.39 (6) Hypokalemia: Status: Acute Problem details: -3.3. oral replacement ordered. DS: Summary Hospital Course Hospital Course: Course of care and details as noted above. Transfer to inpatient geriatric psych for further evaluation and management. Accepting is [facility]. Remainder of chronic medical comorbidities were monitored and managed with home medications. Exam Narrative: Exam Narrative: PHYSICAL EXAM General: Agitated at times with hitting and kicking. growls with curse words at times. Cardiovascular: RRR Pulmonary: No dyspnea Neurological: Alert, remains paranoid and defiant, no active hallucinations at this moment Skin: Warm, dry. Const: Documenting provider has reviewed patient's vital signs: yes Common normals: no apparent distress and alert Exam limitations: altered mental status (Paranoid and defiant) and behavioral limitations General appearance: combative and frail appearing Nutritional appearance: thin Orienta tion/consciousness: Yes oriented to person Neuro: Sensorium/orientation: alert and oriented to person Discharge Plan Discharge Disposition: [facility] Date of Admission: 08/10/24 08:57 Attending Provider on Discharge: Betty Burris Primary Care Provider: Mickie Walters Condition: Stable Discharge Orders: Transfer of Care to Other Hospital (ORDER); Ordered 08/10/24 Ordered By: Betty Burris Discharge Comments: Transfer to inpatient geriatric psych Oxygen: No Urinary Catheter: No Services not available here: inpatient geriatric psych
[2024-08-09] MEDS: lisinopriL 5 MG TABLET PO (09:43)
--- NOTE | 2024-08-09 11:02 | REH.PT ---
Pt to transfer to [facility]. Cancel PT/OT evals.
--- NOTE | 2024-08-09 12:59 | PC.SOCIAL ---
Addendum entered by MARY Eldridge 08/09/24 16:47: Discharge planning: bilingual patient support caseworker left a message on daughterBailee's phone, but there seemed to be issues with her voicemail cutting off the call so not sure if she will receive the message. Social work to follow-up as needed. Addendum entered by MARY Eldridge 08/09/24 16:33: Discharge planning: bilingual patient support caseworker did not hear back from ELLEN North at [facility] and it was starting to get to be later in the afternoon. bilingual patient support caseworker called ELLEN North/[employer] again at #[phone] this afternoon and had to leave a message. bilingual patient support caseworker requested an update on the status of acceptance. bilingual patient support caseworker then heard back from Mary Anne about 15 minutes later and she said that she would not have a bed today and that she would need to continue reviewing the pt's referral tomorrow before she could give an answer. Mary Anne stated that she has had such a large amount of referrals today that she has not had the time to properly assess/review the referral to determine if the pt is appropriate for their program. Mary Anne did request that this worker send updated progress notes and if the pt needed any PRN medications over night tomorrow via fax. bilingual patient support caseworker then spoke to Kassandra at [facility] in [place] #[phone] who stated they do not have any [facility] beds today and have one discharge tomorrow. Kassandra said this worker could send a referral, but that there would be seven other referrals ahead of this referral. bilingual patient support caseworker faxed the referral to [facility] at fax number #[phone]. bilingual patient support caseworker also checked with [facility](same contact number for both hospitals) #[phone] who stated that this worker could call back tomorrow after 11am to check on their [facility] bed status. bilingual patient support caseworker also checked with [facility] #[phone] who stated that they did not have any [facility] beds today and to call back tomorrow after 9:30am, but before 3pm to check the status of beds. bilingual patient support caseworker then checked with [facility] in [place] #[phone] who stated that because of their acuity during the day they are not able to accept referrals during the day right now, but that someone could call back juan carlos after 8pm to see if they have bed availability overnight and could accommodate this pt. They have taken [facility] referrals in the past. This information was relayed to the charge nurse on duty and one of the nurses will call [facility] juan carlos. Update was given to pt's daughter, Bailee, via phone #[phone]. Social work to follow-up as needed. Original Note: Discharge planning: bilingual patient support caseworker faxed over all the needed/requested information for the pt to [facility] in [place], [place] at fax number #[phone]. bilingual patient support caseworker spoke to ELLEN North and [employer] at [facility] and she confirmed that they received the referral paperwork for the pt, but they have not had a chance to review it yet and will get back to this worker this afternoon with an answer as to whether or not the pt is appropriate for their program. Social work to follow-up as needed.
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
[2024-08-09] MEDS: QUETIAPINE 25 MG TABLET PO ×2 (16:30→23:05)
--- NOTE | 2024-08-09 20:47 | PC.NURSE ---
Message left with Sumeet Jimenes for possible transfer. Awaiting return call.
--- NOTE | 2024-08-09 23:27 | PC.NURSE ---
Shift Note: Pt pleasant this afternoon, wandering the unit occasionally attempting to enter other patient rooms. Pt was re-directable. Frequent negative statements regarding how much work she is doing, accusing staff of sneaking into the house and helping themselves to soda. Increased confusion and agitation this evening, pt restless and walking the unit with LUDIVINA escort. Several times pt lowered herself into a hands and knees position attempting to pick black specks off the carpet. She was redirected to her room and spent some time folding wash clothes and tidying her room. Pt suspicious of PO medications and required several reapproach attempts before agreeing to take her Seroquel. Pt was ambulating as she was holding her pill and stumbled. Pt did not fall, but staff were unable to tell if pt had ingested her pill. No medication was found on the floor or in the pt's clothing. Pt stated she took your stupid pill but it remains unclear. Pt continued to ambulate the unit for another hour or so and now appears to be sleeping comfortably in her recliner. Video monitoring in place.
[2024-08-10] VITALS (7 sets, daily range): BP systolic 117–121; BP diastolic 61–63; PULSE 55–61; RESP 14–16; TEMP 36.4; O2SAT 99
--- NOTE | 2024-08-10 07:09 | PC.NURSE ---
[id number]: Pt alert and oriented to self. Restful night VS. At beginning of shift pt was up cleaning room, easily redirectable. Pt eventually fell asleep in chair. 1:1, alarms on. Pt awoke and was standing in-between chair and bed, staff attempted to redirect, pt tried hitting at staff. Staff got pt back into chair, appears to be resting.
--- NOTE | 2024-08-10 07:32 | PM.IMPN1 ---
Assessment and Plan Assessment and plan (1) Agitation requiring sedation protocol: Problem comment: -olanzapine 10mg 0730 08/10 -quetiapine 50mg TID (crushed with cranberry juice) -needed restraints less than 60 mins between IM or oral antipsychotics and has been calm and ate lunch after -RASS score after these two administrations (08/10): -2 at 1000, 0 by 1300 Status: Acute (2) Dementia: Problem comment: Concern for Lewy Body Dementia. At this time AVOID Haldol, Respiradol, pramipexole and ropinirole. At medicare physical in 12/29 miniCog was 5/5. But PCP detected something seemed off; noted to watch for worsening symptoms. Daughter brought written concerns to appt in late July 2024. MMSE . MR was ordered but not completed. Status: Acute (3) Hallucinations: Problem comment: -Pt is convinced that strangers and a known relatives are spending time in the house, eating her food, using the washer, and sleeping over. She states she is not sure how these people are getting into the home as the doors are locked. -toxic screen negative. -E.d. where not able to transfer her to another facility for psych evaluation and treatment and was accepted for admission at [facility] until we get an accepting psych/geriatric facility. - A tele health mental assessment was completed at ED and a psychiatrist also did evaluate this patient recommending inpatient evaluation and treatment. Initial concerns of above were brought forth to her PCP during a clinic visit on 07/26/2024. Her daughter, Damaris, had written a letter for her PCP to review with concerns of obvious hallucinations, paranoia. A mini-mental exam on 07/26/24 was 23/30. Of note, mini cog completed during her Medicare annual exam in December 2023 scored 5/5 however her PCP made note of concern that the patient seemed to befuddled and was concern enough for her to keep an eye on this. CT head showed no acute findings. Workup thus far shows no acute infectious process. Recent TSH unremarkable. Recent RPR negative. EKG NSR. Appropriate for transfer to inpatient geriatric psych facility for further evaluation and management. Status: Acute (4) Essential hypertension: Problem comment: On lisinopril Status: Acute (5) Hypothyroidism: Problem comment: On levothyroxine. TSH 2.39 Status: Acute (6) Hypokalemia: Problem comment: -3.3. oral replacement ordered. Status: Acute Subjective Date Seen: 08/10/24 Interval history: Daily Progress Note - #: 3 CC: agitated dementia 24 HOUR UPDATE: pt had Seroquel dosed last night and was able to sleep for a few hours. this follows almost 48 hours of very little sleep lasting more than 1 hour at a time. Upon waking this am - patient was combative; swinging, hitting staff members. She was trying to walk behind the nurses desk and seemed unsteady on her feet. She was cursing and verbally assaulting anyone who looked at her. She was trying to pickle processor our desk phone and call. This follows the last 48 hours with similar behaviors. Overview of her history from PCP notes. Initial concerns of above were brought forth to her PCP during a clinic visit on 07/26/2024. Her daughter, Damaris, had written a letter for her PCP to review with concerns of obvious hallucinations, paranoia. A mini-mental exam on 07/26/24 was 23/30. Of note, mini cog completed during her Medicare annual exam in December 2023 scored 5/5 however her PCP made note of concern that the patient seemed to befuddled and was concern enough for her to keep an eye on this. Notable Labs, Micro, Rads, Interventions: CT head showed no acute findings. Workup thus far shows no acute infectious process. Recent TSH unremarkable. Recent RPR negative. EKG NSR. Appropriate for transfer to inpatient geriatric psych facility for further evaluation and management. Objective: small, thin. agitated. physically swinging and kicking. growling with curse words. Vitals: see above Lungs: Clear. Cardiac: S1S2. Disposition/Potential discharge - inpatient [facility] is appropriate. Today I spent 50minutes seeing the patient, reviewing Expanse and EPIC notes/diagnostics, discussing the care plan with our care time that includes social work, PT/OT, pharmacy, RT, correction and documenting my impressions and plan in the medical record. Prolonged Physician Services [id number] ([facility]) in conjunction with: [id number] (subsequent visit; 50 mins + 15 mins prolonged services = 65 mins total) - this was hands-on support to the nursing staff; verbally redirecting, administering IM meds against her wishes; restraints. discussing case with pharmacy for lowest but range dosing for antipsychotics. Peer to Peer with accepting inpatient psych. Exam Const: Vital Signs, click to edit/add: Vital Signs - 24 hr 08/09/24 15:00 08/09/24 23:00 08/09/24 23:30 Respiratory Rate 18 16 18 08/10/24 06:00 Respiratory Rate 14
[2024-08-10] MEDS: OLANZapine 5 MG/ML inj 10 MG IM (07:43)
--- NOTE | 2024-08-10 08:00 | PC.NURSE ---
Patient came out of her room this am and was verbally abuse and hitting out at staff. You go to Hell you fat pig Now get out of here. Order received from Dr. Burris to give zyprexa IM. She was guided by two staff walking back to her room and then received the injection and she sat down in the chair. Have been monitoring her via camera. Did attempt to get a full set of vitals on her but she would not keep the pulse ox on to get a reading see vital signs for what I did get on her.
[2024-08-10] MEDS: QUETIAPINE 25 MG TABLET 50 MG PO ×2 (09:21→13:53)
--- NOTE | 2024-08-10 09:30 | PC.NURSE ---
Nursing Note - At approximately 0830 pt was observed to attempt to get up from chair, RN entered room to assist pt as she appeared to be unsteady on her feet as evidenced by pt's swaying movement and grabbing for furniture. RN attempted to provide assistance and ambulatory support to which the pt stated don't touch me and proceeded to swat at RN. This interaction led to pt to appear to lose balance and attempt to sit back in the chair. Pt was not fully on seat and RN assisted pt to floor as she slid off of the chair. Pt once again swatted at RN and stated get your hands off me. RN was able to call for assistance at this time to help with visual monitoring as pt began crawling around the floor on her hands and knees and refused assistance.
--- NOTE | 2024-08-10 10:44 | PC.SOCIAL ---
Addendum entered by MARY Eldridge 08/10/24 16:21: Discharge planning: agricultural service worker notified pt's daughter, Bailee, that pt was accepted to [facility] in [place], [place] for today. Non-emergent EMS will transport the pt at 4:30-5:00pm. agricultural service worker notified Mary Anne at [facility] of the transport time. Social work to follow-up as needed. Addendum entered by MARY Eldridge 08/10/24 15:18: Discharge planning: Pt has been accepted to [facility] in [place], [place] for today. Pt will transport via non-emergent EMS. Social work to follow-up as needed. Addendum entered by MARY Eldridge 08/10/24 12:50: Discharge planning: agricultural service worker faxed pt's updated labs a short time ago to Mary Anne at [facility], fax #[phone]. Social work to follow-up as needed. Addendum entered by MARY Eldridge 08/10/24 11:47: Discharge planning: agricultural service worker received a call from [facility] around 11:40am and she asked for a contact phone number of a family member. agricultural service worker gave her pt's daughter, Bailee Gonzalez's phone number, #[phone]. Mary Anne also stated that they would need updated CBC and BMP labs from today. agricultural service worker talked to the charge nurse on duty and they will request the provider order these labs. agricultural service worker will send the updated labs to Mary Anne when they are available. agricultural service worker asked Mary Anne if she knew if they would be able to accept the pt to their program and she said that she needed to see labs, talk to the pt's daughter and the hospitalist on duty at her facility and she would hopefully be able to have an answer this afternoon. Social work to follow-up as needed. Original Note: Discharge planning: agricultural service worker spoke to ELLEN North at [facility] #[phone] this morning and she asked if the pt still needed placement. This worker told her yes and a faxed over additional notes for the pt that she had requested this worker send this morning when this worker spoke to her yesterday. agricultural service worker faxed the notes to fax number #[phone]. Sondra stated that she had a meeting from 10-11am this morning and would review the pt's additional notes after that meeting. agricultural service worker also checked with [facility] again this morning(same contact number for both hospitals/they are [facility]) #[phone] and they stated they do not have any [facility] beds and to check back tomorrow(08/11) after 9am. agricultural service worker also called [facility] again #[phone] and they stated that they do not have any [facility]-psych beds at any of their locations right now. agricultural service worker also called [facility] #[phone] and they stated that they do not have any [facility] beds right now. They also stated that [facility] would not be an option for the pt to go to because of her Dimentia diagnosis and not being able to participate in groups. They shared that [facility] would be the best location for her, but they do not have beds. They stated to call back tomorrow morning(08/11) to check on bed availability. Per nursing who called [facility] last night, they would be unable to take the pt because of her Dimentia diagnosis and not being able to participate in groups. Social work to follow-up as needed.
[2024-08-10] MEDS: ACETAMINOPHEN 325 MG TABLET 650 MG PO (11:26)
[2024-08-10 12:02] LABS: Hematocrit 41.3 % (33.0-51.0); Hemoglobin* 13.2 gm/dL (12.0-16.0); Mean Corpuscular HGB Conc 32 gm/dL (32-36); Mean Corpuscular Hemoglobin 29 pg (26-34); Mean Corpuscular Volume 90 fL (80-100); Platelet Count* 233 K/uL (140-440); Red Blood Count 4.61 m/uL (4.00-5.20); White Blood Count* 7.02 K/uL (4.50-11.00)
[2024-08-10 12:08] LABS: Slide Review Reflex No
[2024-08-10 12:17] LABS: Chloride* 105 mmol/L (96-114)
[2024-08-10 12:18] LABS: Albumin* 4.7 g/dL (3.3-5.0); Potassium* 3.3 mmol/L (3.6-5.1); Sodium* 145 mmol/L (135-149)
[2024-08-10 12:20] LABS: Alanine Aminotransferase* 33 U/L (4-35); Anion Gap 13 mEq/L (7-15); Aspartate Amino Transferase* 51 U/L (12-35); Blood Urea Nitrogen* 27 mg/dL (7-30); Carbon Dioxide* 27 mmol/L (20-32); Creatinine* 0.6 mg/dL (0.5-1.5); Est. Creatinine Clearance* 30.08; Estimated Glomerular Filt Rate 88 ml/min; Total Protein* 7.8 g/dL (6.0-8.3)
[2024-08-10 12:21] LABS: Alkaline Phosphatase* 42 U/L (40-150); Calcium* 10.4 mg/dL (8.4-10.6); Glucose* 125 mg/dL (60-115)
[2024-08-10 13:12] LABS: Magnesium* 2.1 mg/dL (1.5-2.6)
--- NOTE | 2024-08-10 14:51 | P.DS_ITS ---
Transfer Discharge Sum: Prov Provider Date Seen: 08/10/24 Date of admission: 08/10/24 08:57 Primary care physician: Mickie Walters MD Consults: 08/07/24 15:18 Consult to Telehealth Mental Assessment [CONS] Urgent Comment: Consulting Provider: [facility] 08/08/24 15:35 Consult to Industrial Twisting Machine Operator [CONS] Routine Comment: Reason for Consult:: Discharge Planning Needs Attending physician on discharge: Betty Burris Discharging clinician: Betty Burris Anticipated date of transfer: 08/10/24 Receiving physician/facility: [facility] DS: Diagnosis Discharge Diagnosis (1) Agitation requiring sedation protocol: Status: Acute Problem details: -olanzapine 10mg 0730 08/10 -quetiapine 50mg TID (crushed with cranberry juice) -needed restraints less than 60 mins between IM or oral antipsychotics and has been calm and ate lunch after -RASS score after these two administrations (08/10): -2 at 1000, 0 by 1300 (2) Dementia: Status: Acute Problem details: Concern for Lewy Body Dementia. At this time AVOID Haldol, Respiradol, pramipexole and ropinirole. At medicare physical in 12/29 miniCog was 5/5. But PCP detected something seemed off; noted to watch for worsening symptoms. Daughter brought written concerns to appt in late July 2024. MMSE 23/30. MR was ordered but not completed. (3) Hallucinations: Status: Acute Problem details: -Pt is convinced that strangers and a known relatives are spending time in the house, eating her food, using the washer, and sleeping over. She states she is not sure how these people are getting into the home as the doors are locked. -toxic screen negative. -E.d. where not able to transfer her to another facility for psych evaluation and treatment and was accepted for admission at [facility] until we get an accepting psych/geriatric facility. - A tele health mental assessment was completed at ED and a psychiatrist also did evaluate this patient recommending inpatient evaluation and treatment. Initial concerns of above were brought forth to her PCP during a clinic visit on 07/26/2024. Her daughter, Damaris, had written a letter for her PCP to review with concerns of obvious hallucinations, paranoia. A mini-mental exam on 07/26/24 was 23/30. Of note, mini cog completed during her Medicare annual exam in December 2023 scored 5/5 however her PCP made note of concern that the patient seemed to befuddled and was concern enough for her to keep an eye on this. CT head showed no acute findings. Workup thus far shows no acute infectious process. Recent TSH unremarkable. Recent RPR negative. EKG NSR. Appropriate for transfer to inpatient geriatric psych facility for further evaluation and management. (4) Hypokalemia: Status: Acute Problem details: -3.3. oral replacement ordered. (5) Essential hypertension: Status: Acute Problem details: On lisinopril (6) Hypothyroidism: Status: Acute Problem details: On levothyroxine. TSH 2.39 Transfer Discharge Sum: Med Medications Active and Home Medications: Home Medications levothyroxine 50 mcg tablet 50 mcg PO QDAY #90 tabs 12/11/23 [Rx Confirmed 07/26/24] lisinopril 5 mg tablet 5 mg PO QDAY #90 tabs 12/11/23 [Rx Confirmed 07/26/24] Active Medications Acetaminophen (Acetaminophen 325 Mg Tablet) 650 mg PO Q6H PRN PRN Reason: As needed for fever, headache, or minor pain Last Admin: 08/10/24 11:26 Dose: 650 mg Benzocaine/Menthol (Benzocaine/Menthol 1 Each Lozenge) 1 each MUCOUS MEM Q1H PRN PRN Reason: sore/dry throat Last Admin: 08/09/24 00:23 Dose: 1 each Enoxaparin Sodium (Enoxaparin 30 Mg/0.3ml Inj) 30 mg SUBCUT Q24H [facility] Last Admin: 08/09/24 20:35 Dose: Not Given Levothyroxine Sodium (Levothyroxine 50 Mcg Tablet) 50 mcg PO DAILY@0700 [facility] Last Admin: 08/10/24 10:10 Dose: Not Given Lisinopril (Lisinopril 5 Mg Tablet) 5 mg PO DAILY [facility] Last Admin: 08/10/24 10:10 Dose: Not Given Menthol (Menthol 57 Gm Gel) 1 applic TOPICAL Q6H [facility] Last Admin: 08/10/24 12:45 Dose: Not Given Olanzapine (Olanzapine 5 Mg Tab.Rapdis) 5 mg PO Q12H PRN PRN Reason: Agitation Last Admin: 08/09/24 11:54 Dose: 5 mg Olanzapine (Olanzapine 5 Mg/Ml Inj) 10 mg IM ONCE ONE Stop: 08/10/24 14:50 Polyethylene Glycol (Polyethylene Glycol 3350 17 Gm Pack) 17 gm PO DAILY PRN PRN Reason: Constipation Potassium Chloride (Potassium Chloride 10 Meq Capsule Er) 20 meq PO DAILYWM ELEONORA Quetiapine Fumarate (Quetiapine 25 Mg Tablet) 50 mg PO TID ELEONORA Last Admin: 08/10/24 13:53 Dose: 50 mg Transfer Discharge Sum: Hosp Hospital Course Hospital course: HOSPITALIST TRANSFER SUMMARY ATTENDING PHYSICIAN: Betty Burris MD REASON FOR TRANSFER Need for geriatric psychiatry, inpatient management. Agitated dementia. BRIEF HOSPITAL COURSE: Patient was brought to the emergency room by family for worsening hallucinations agitated dementia. Comorbidities included advanced age, hypothyroidism. Alternative causes of her hallucinations were explored and none were found. In the emergency room placement in a [facility] psych facility was attempted. There were no beds. She was admitted to the floor for just under 48 hours. She required 1 on 1 care giving. At times she was agitated to the point of hitting, slapping, growling. She would curse her staff. At other times she could be pleasant and, while still demented, be able to carry on a conversation and a stream of consciousness. We used IM and oral olanzapine and oral Seroquel. She was transferred on the afternoon of 08/10/2024 to a nursing home inpatient [facility] psych unit in [facility]. SERVICES NOT AVAILABLE HERE THAT THIS PATIENT NEEDS: Psychiatry, inpatient psych care ACCEPTING PHYSICIAN/SERVICE/LOCATION: [facility] MEDICATIONS AT TIME OF TRANSFER: Olanzapine either IM or oral, Seroquel, levothyroxine, lisinopril, potassium, held on DRIPS/LINES: Just IV access VITAL SIGN, MEDICATION, LAB/MICRO, IMAGING SUMMARY (full details available records accompany patient) Head CT Labs including urine culture EKG REVIEW OF SYSTEMS Unchanged. Fluctuating agitation PHYSICAL EXAM: CONSTITUTIONAL: Small thin, mildly disheveled. Able to ambulate without assistance VITAL SIGNS: see record. Exam unchanged from earlier with notable exceptions: DISPOSITION: Inpatient psychiatry, geriatric Time spent on discharge >30 minutes. This includes speaking with accepting physician; family/patient and coordinating meds/drips for transfer Time Spent with Patient Time attestation: Total time spent providing and/or coordinating transfer services: Total time spent: Greater than 30 minutes Exam Const: Vital Signs, click to edit/add: Vital Signs - 24 hr 08/09/24 15:00 08/09/24 23:00 08/09/24 23:30 Temperature Pulse Rate [Left P ulse Oximeter] Respiratory Rate 18 16 18 Blood Pressure [Le ft Arm] Pulse Oximetry Oxygen Delivery Me thod 08/10/24 06:00 08/10/24 08:17 08/10/24 09:15 Temperature Pulse Rate [Left P ulse Oximeter] 55 L Respiratory Rate 14 16 Blood Pressure [Le ft Arm] 117/61 Pulse Oximetry Oxygen Delivery Me thod 08/10/24 09:40 08/10/24 10:00 08/10/24 11:00 Temperature 97.5 F L Pulse Rate [Left P ulse Oximeter] 61 Respiratory Rate 16 16 Blood Pressure [Le ft Arm] 121/63 121/63 Pulse Oximetry 99 Oxygen Delivery Me thod Room Air Discharge Plan Discharge Disposition: [facility] Date of Admission: 08/10/24 08:57 Attending Provider on Discharge: Betty Burris Primary Care Provider: Mickie Walters Condition: Stable Discharge Orders: Transfer of Care to Other Hospital (ORDER); Ordered 08/10/24 Ordered By: Betty Burris Discharge Comments: Transfer to inpatient geriatric psych Oxygen: No Urinary Catheter: No Services not available here: inpatient geriatric psych
[2024-08-10] MEDS: POTASSIUM BICARB 25 MEQ EFFERVESCENT TAB PO (14:55)
--- NOTE | 2024-08-10 16:53 | PC.NURSE ---
Pt doing okay today. Oriented to self only. Resistant to care and redirection. Due to agitation and impulse, pt required 1:1 status this morning for pt and staff safety. VSS. Denies pain. Pt transferred to [facility] via EMS at 1645. Nurse to nurse report was given to ELLEN Rehman
== END 2024-08-10 16:45 | DRG 884 ==
LOC: ED 08-08 12:21 → MEDSURG 08-08 12:41
PROVIDERS: Family Medicine; Student in an Organized Health Care Education/Training Program; Admitting Provider Family Medicine; Emergency Provider Emergency Medicine Emergency Medical Services; PCP Internal Medicine; Visit Provider Internal Medicine
DX: F03.92 Unspecified dementia, unspecified severity, with psychotic disturbance (principal); F02.811 Dementia in other diseases classified elsewhere, unspecified severity, with agitation; I10 Essential (primary) hypertension; E87.6 Hypokalemia; E03.9 Hypothyroidism, unspecified; F03.911 Unspecified dementia, unspecified severity, with agitation
CPT/HCPCS: 36415; 70450; 80048; 80053; 80143; 80179; 80306; 81001; 82077; 83735; 84443; 85025; 85027; 87086; 87426; 93005; 94761; 99285; A9270; G0378; J1630

== ENCOUNTER 2024-08-10 16:44 | Outpatient (CLI) | payer MEDICARE, OTHER, SELFPAY | END 2024-08-10 16:45 | disposition home or self-care (01) | LOC: AMB 08-12 10:00 | PROVIDERS: PCP Internal Medicine; Visit Provider Student in an Organized Health Care Education/Training Program | DX: R45.1 Restlessness and agitation (principal); F03.90 Unspecified dementia, unspecified severity, without behavioral disturbance, psychotic disturbance, mood disturbance, and anxiety; R44.3 Hallucinations, unspecified | CPT/HCPCS: A0425; A0428 ==